=== PATIENT | male | born 1975 | race Caucasian/White ===

== ENCOUNTER 2017-11-06 16:49 | Emergency (ER) | payer SELFPAY | END 2017-11-06 17:30 | disposition home or self-care (01) | LOC: ER 16:49 | DX: M54.12 Radiculopathy, cervical region (principal); R21 Rash and other nonspecific skin eruption | CPT/HCPCS: 99283 ==

== ENCOUNTER 2019-08-15 14:52 | Inpatient (IN) | payer SELFPAY ==
[~2019-08-15] VITALS: Ht 177.8 cm; Wt 95.3 kg
[~2019-08-15 14:52] MED LIST: AMLO5TAB10 PO; BUPR100T7 PO; CLON0.1T12 PO; LORA1TAB PO; NALT50TA PO; PRED20TA PO
--- NOTE | 2019-08-15 15:33 | PHYS DOC ---
Past Medical History Past Medical History: No Pertinent History Past Surgical History: Other Additional Past Surgical Histo: RIGHT HAND Alcohol Use: Heavy Drug Use: None Adult General Chief Complaint Chief Complaint: ABDOMINAL PAIN HPI HPI Patient is a 43 year old male with history of alcoholism who presents to the ED today complaining of 5 out of 10 epigastric abdominal pain that began a couple days ago, patient will not define how many days he has had this pain, he states he has been on a drinking binge for the last 1 month. He states today he had a pack of beer as well as a couple hard liquors, he will not elaborate on what he drank. Patient describes the pain as burning sensation. Denies any nausea vomiting. Denies any exacerbating or alleviating factors. He states he might need help with alcoholism. Review of Systems Review of Systems Constitutional: Denies fever or chills [] Eyes: Denies change in visual acuity, redness, or eye pain [] HENT: Denies nasal congestion or sore throat [] Respiratory: Denies cough or shortness of breath [] Cardiovascular: No additional information not addressed in HPI [] GI: Reports epigastric abdominal pain. Denies abdominal pain, bloody stools or diarrhea [] : Denies dysuria or hematuria [] Musculoskeletal: Denies back pain or joint pain [] Integument: Denies rash or skin lesions [] Neurologic: Denies headache, focal weakness or sensory changes [] All other systems were reviewed and found to be within normal limits, except as documented in this note. Current Medications Current Medications Current Medications Medications (Trade) Dose Ordered Sig/[facility] Start Time Stop Time Status Last Admin Dose Admin Acetaminophen/ Codeine Phosphate (Tylenol #3) 1 tab PRN Q6HRS PRN 08/15/19 17:30 Amlodipine Besylate (Norvasc) 5 mg DAILY 08/16/19 09:00 Bupropion HCl (Wellbutrin Sr) 100 mg BID 08/15/19 21:00 Chlordiazepoxide (Librium) 25 mg PRN Q6HRS PRN 08/15/19 17:30 Clonidine HCl (Catapres) 0.1 mg PRN Q1HR PRN 08/15/19 17:30 Fentanyl Citrate (Fentanyl 2ml Vial) 50 mcg 1X ONCE 08/15/19 17:30 08/15/19 17:33 DC 08/15/19 18:20 50 MCG Folic Acid (Folic Acid) 1 mg DAILY 08/16/19 09:00 Info (CONTRAST GIVEN -- Rx MONITORING) 1 each PRN DAILY PRN 08/15/19 17:00 08/17/19 16:59 Iohexol (Omnipaque 300 Mg/ml) 75 ml 1X ONCE 08/15/19 17:00 08/15/19 17:01 DC 08/15/19 16:49 75 ML Lorazepam (Ativan Inj) 2 mg PRN Q4HRS PRN 08/15/19 17:30 Lorazepam (Ativan) 1 mg PRN TID PRN 08/15/19 17:30 Morphine Sulfate (Morphine Sulfate) 4 mg PRN Q2HR PRN 08/15/19 17:15 08/16/19 17:14 Multi-Ingredient Mouthwash/Gargle (Gi Cocktail) 20 ml 1X ONCE 08/15/19 16:00 08/15/19 16:01 DC 08/15/19 15:32 20 ML Multivitamins (Thera M Plus) 1 tab DAILY 08/16/19 09:00 Multivitamins 10 ml/Thiamine HCl 100 mg/Folic Acid 1 mg/Sodium Chloride 1,011.2 ml @ 1,000.088 mls/hr 1X ONCE 08/15/19 16:00 08/15/19 17:00 DC 08/15/19 15:49 1,000.088 MLS/HR Naltrexone HCl (ReVia) 50 mg DAILY 08/16/19 09:00 Nicotine (Nicoderm Cq 21mg) 1 patch PRN DAILY PRN 08/15/19 17:30 Ondansetron HCl (Zofran) 4 mg PRN Q6HRS PRN 08/15/19 17:30 Pantoprazole Sodium (PROTONIX VIAL for IV PUSH) 40 mg 1X ONCE 08/15/19 17:45 08/15/19 17:46 DC 08/15/19 18:20 40 MG Sodium Chloride 1,000 ml @ 125 mls/hr Q8H 08/15/19 18:00 08/15/19 18:21 125 MLS/HR Thiamine Mononitrate (Vitamin B-1) 100 mg DAILY 08/16/19 09:00 Zolpidem Tartrate (Ambien) 5 mg PRN QHS PRN 08/15/19 17:30 Allergies Allergies Allergies Coded Allergies Type Severity Reaction Last Updated Verified No Known Drug Allergies 11/06/17 No Physical Exam Physical Exam Constitutional: Well developed, well nourished, no acute distress, non-toxic appearance. [] HENT: Normocephalic, atraumatic, bilateral external ears normal, oropharynx moist, no oral exudates, nose normal. [] Eyes: PERRLA, EOMI, conjunctiva normal, no discharge. [] Neck: Normal range of motion, no tenderness, supple, no stridor. [] Cardiovascular:Heart rate regular rhythm, no murmur [] Lungs & Thorax: Bilateral breath sounds clear to auscultation [] Abdomen: Bowel sounds normal, soft, no tenderness, no masses, no pulsatile masses. [] Skin: Warm, dry, no erythema, no rash. [] Back: No tenderness, no CVA tenderness. [] Extremities: No tenderness, no cyanosis, no clubbing, ROM intact, no edema. [] Neurologic: Alert and oriented X 3, normal motor function, normal sensory function, no focal deficits noted. [] Psychologic: Flat affect, depressed mood Current Patient Data Vital Signs Vital Signs Date Time Temp Pulse Resp B/P (MAP) Pulse Ox O2 Delivery O2 Flow Rate FiO2 08/15/19 18:20 24 100 Room Air 08/15/19 15:10 98.6 72 165/98 (120) 98.6 Lab Values Laboratory Tests Test 08/15/19 13:17 08/15/19 15:28 Urine Color Yellow Urine Clarity Clear Urine pH 7.0 Urine Specific [place] 1.015 Urine Protein Negative mg/dL (NEG-TRACE) Urine Glucose (UA) Negative mg/dL (NEG) Urine Ketones (Stick) Negative mg/dL (NEG) Urine Blood Negative (NEG) Urine Nitrite Negative (NEG) Urine Bilirubin Negative (NEG) Urine Urobilinogen Dipstick 1.0 mg/dL (0.2 mg/dL) Urine Leukocyte Esterase Negative (NEG) Urine RBC 0 /HPF (0-2) Urine WBC Occ /HPF (0-4) Urine Squamous Epithelial Cells Occ /LPF Urine Bacteria 0 /HPF (0-FEW) Urine Mucus Mod /LPF Urine Opiates Screen Neg (NEG) Urine Methadone Screen Neg (NEG) Urine Barbiturates Neg (NEG) Urine Phencyclidine Screen Neg (NEG) Urine Amphetamine/Methamphetamine Neg (NEG) Urine Benzodiazepines Screen Neg (NEG) Urine Cocaine Screen Neg (NEG) Urine Cannabinoids Screen Neg (NEG) Urine Ethyl Alcohol Pos (NEG) White Blood Count 8.9 x10^3/uL (4.0-11.0) Red Blood Count 4.48 x10^6/uL (4.30-5.70) Hemoglobin 15.4 g/dL (13.0-17.5) Hematocrit 43.3 % (39.0-53.0) Mean Corpuscular Volume 97 fL (79-100) Mean Corpuscular Hemoglobin 34 pg (25-35) Mean Corpuscular Hemoglobin Concent 36 g/dL (31-37) Red Cell Distribution Width 12.9 % (11.5-14.5) Platelet Count 131 x10^3/uL (140-400) L Neutrophils (%) (Auto) 75 % (31-73) H Lymphocytes (%) (Auto) 18 % (24-48) L Monocytes (%) (Auto) 6 % (0-9) Eosinophils (%) (Auto) 0 % (0-3) Basophils (%) (Auto) 1 % (0-3) Neutrophils # (Auto) 6.7 x10^3/uL (1.8-7.7) Lymphocytes # (Auto) 1.6 x10^3/uL (1.0-4.8) Monocytes # (Auto) 0.5 x10^3/uL (0.0-1.1) Eosinophils # (Auto) 0.0 x10^3/uL (0.0-0.7) Basophils # (Auto) 0.1 x10^3/uL (0.0-0.2) Sodium Level 136 mmol/L (136-145) Potassium Level 4.2 mmol/L (3.5-5.1) Chloride Level 101 mmol/L (98-107) Carbon Dioxide Level 19 mmol/L (21-32) L Anion Gap 16 (6-14) H Blood Urea Nitrogen 14 mg/dL (8-26) Creatinine 0.9 mg/dL (0.7-1.3) Estimated GFR (Cockcroft-Gault) 93.0 BUN/Creatinine Ratio 16 (6-20) Glucose Level 174 mg/dL (70-99) H Calcium Level 8.0 mg/dL (8.5-10.1) L Magnesium Level 1.6 mg/dL (1.8-2.4) L Total Bilirubin 0.6 mg/dL (0.2-1.0) Aspartate Amino Transferase (AST) 220 U/L (15-37) H Alanine Aminotransferase (ALT) 54 U/L (16-63) Alkaline Phosphatase 76 U/L (46-116) Total Protein 7.2 g/dL (6.4-8.2) Albumin 3.2 g/dL (3.4-5.0) L Albumin/Globulin Ratio 0.8 (1.0-1.7) L Lipase 577 U/L (73-393) H Ethyl Alcohol Level 103 mg/dL (0-10) H Laboratory Tests 08/15/19 15:28 Laboratory Tests 08/15/19 15:28 EKG EKG [address] Rodriges sinus rhythm HR 75 no STEMI[] Radiology/Procedures Radiology/Procedures []PROCEDURE: CT ABD PELV W/ IV CONTRST ONLY Exam: CT abdomen and pelvis with contrast INDICATION: Abdominal pain, alcoholic TECHNIQUE: Sequential axial images through the abdomen and pelvis obtained following the administration of 75 mL of Omni 300 IV contrast. Sagittal and coronal reformatted images were reconstructed from the axial data and reviewed. Comparisons: CT 05/31/2019 FINDINGS: Heart size is normal. No pericardial effusion. Visualized lung bases are clear. No pleural effusion. Mild hepatic steatosis. Otherwise, liver, spleen, and adrenals are unremarkable. Gallstone noted within the gallbladder which is otherwise unremarkable. Mild inflammatory changes surrounding the pancreatic head and duodenum. No peripancreatic fluid collection or ductal dilatation. Kidneys a straight symmetric enhancement. No perinephric inflammation or hydronephrosis. No renal or ureteral calculi are identified. Bladder is distended and appears thin-walled. Prostate is not enlarged. Large and small bowel are unremarkable. No obstruction. No free intra-abdominal air or fluid. Abdominal aorta has a normal course and caliber. Abdominal vasculature is patent. No enlarged abdominal lymph nodes are identified. No suspicious osseous lesions or acute fractures. IMPRESSION: 1. Inflammatory changes surrounding the pancreatic head, favored represent pancreatitis. No fluid collection or evidence of necrosis. 2. Inflammatory changes also involve the duodenum, likely secondary to proximity. However, superimposed enteritis is also possible. 3. Hepatic steatosis. Exposure: One or more of the following in the visualized dose reduction techniques were utilized for this examination: 1. Automated exposure control 2. Adjustment of the MA and/or KV according to patient size 3. Use of iterative of reconstructive technique Electronically signed by: Bandar Rocha MD (08/15/2019 5:01 PM) [facility] DICTATED and SIGNED BY: BANDAR ROCHA MD DATE: 08/15/19 3622 Course & Med Decision Making Course & Med Decision Making Pertinent Labs and Imaging studies reviewed. (See chart for details) This is a 43-year-old male patient with history of alcoholism presenting today complaining of epigastric abdominal pain for couple days. Patient drank prior to coming to the ED see HPI. Patient was started on a banana bag on arrival to the ED. CBC with a normal WBC, CMP with AST of 220, magnesium 1.6, glucose 174, anion gap 16, lipase 577. CT of the abdomen and pelvic was noted for acute pancreatitis. Alcohol level 103. Routine consult placed for GI. IV fluids continued as well as nothing by mouth 1716 Spoke with who accepted patient for admission PAT team consult placed-spoke with [facility] PAT team they will f/u with patient in AM Dragon Disclaimer Dragon Disclaimer This electronic medical record was generated, in whole or in part, using a voice recognition dictation system. Departure Departure Impression: Primary Impression: Acute pancreatitis Additional Impression: Alcoholism Disposition: ADMITTED INPATIENT Condition: STABLE Referrals: NO PCP (PCP) Problem Qualifiers Primary Impression: Acute pancreatitis Pancreatitis type: unspecified pancreatitis type Acute pancreatitis complication: unspecified Qualified Codes: K85.90 - Acute pancreatitis without necrosis or infection, unspecified ABIMAEL CONTRERAS PHARMACY STUDENT Aug 15, 2019 15:33
[2019-08-15 15:36] LABS: BASO # 0.1 x10^3/uL (0.0-0.2); BASO % 1 % (0-3); EOS % 0 % (0-3); HEMATOCRIT 43.3 % (39.0-53.0); HEMOGLOBIN 15.4 g/dL (13.0-17.5); LYMPH # 1.6 x10^3/uL (1.0-4.8); LYMPH % 18 % (24-48); MEAN CORPUSCULAR HEMOGLOBIN 34 pg (25-35); MEAN CORPUSCULAR HGB CONC 36 g/dL (31-37); MEAN CORPUSCULAR VOLUME 97 fL (79-100); MONO # 0.5 x10^3/uL (0.0-1.1); MONO % 6 % (0-9); NEUT # 6.7 x10^3/uL (1.8-7.7); NEUT % 75 % (31-73); PLATELET COUNT 131 x10^3/uL (140-400); RED BLOOD COUNT 4.48 x10^6/uL (4.30-5.70); RED CELL DISTRIBUTION WIDTH 12.9 % (11.5-14.5); WHITE BLOOD COUNT 8.9 x10^3/uL (4.0-11.0)
[2019-08-15 15:43] LABS: CREATININE 0.9 mg/dL (0.7-1.3); POTASSIUM 4.2 mmol/L (3.5-5.1)
[2019-08-15 15:50] LABS: ALBUMIN 3.2 g/dL (3.4-5.0); ALBUMIN/GLOBULIN RATIO 0.8 (1.0-1.7); MAGNESIUM 1.6 mg/dL (1.8-2.4); TOTAL BILIRUBIN 0.6 mg/dL (0.2-1.0); TOTAL PROTEIN 7.2 g/dL (6.4-8.2)
--- NOTE | 2019-08-15 15:56 | EKG ---
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
[2019-08-15] MEDS ORDERED: LIDO:MAALOX 1:1 20 ML SINGLE DOSE. SWSW ONE (16:00)
[2019-08-15] MEDS ORDERED: ONDANSETRON PF 4 MG/2 ML VIAL. IV ONE (16:00)
[2019-08-15] MEDS ORDERED: MULTIVIT INFUSN,ADULT 4,VIT K 10 ML, THIAMINE INJ 100 MG, FOLIC ACID INJ 1 MG in IV NOR... IV ONE (16:00)
[2019-08-15 16:32] LABS: BILIRUBIN,URINE NEGATIVE (NEG); CLARITY,URINE CLEAR; COLOR,URINE YELLOW; NITRITE,URINE NEGATIVE (NEG); PROTEIN,URINE NEGATIVE (NEG-TRACE)
[2019-08-15 16:46] LABS: BACTERIA,URINE 0 /HPF (0-FEW); RBC,URINE 0 /HPF (0-2); SQUAMOUS EPITHELIAL CELL,UR OCC /LPF; WBC,URINE OCC /HPF (0-4)
[2019-08-15 16:48] LABS: BARBITURATES NEG (NEG); BENZODIAZEPINES NEG (NEG); CANNABINOIDS NEG (NEG); COCAINE NEG (NEG); METHADONE NEG (NEG); OPIATES NEG (NEG); PHENCYCLIDINE NEG (NEG)
[2019-08-15 16:53] LABS: AMPHETAMINE/METHAMPHETAMINE NEG (NEG)
[2019-08-15] MEDS ORDERED: IOHEXOL 300 MG/ML 100ML VIAL. IV ONE (17:00)
[2019-08-15] MEDS ORDERED: CONTRAST GIVEN. MC PRN (17:00)
--- NOTE | 2019-08-15 17:04 | RAD ---
Exam: CT abdomen and pelvis with contrast INDICATION: Abdominal pain, alcoholic TECHNIQUE: Sequential axial images through the abdomen and pelvis obtained following the administration of 75 mL of Omni 300 IV contrast. Sagittal and coronal reformatted images were reconstructed from the axial data and reviewed. Comparisons: CT 05/31/2019 FINDINGS: Heart size is normal. No pericardial effusion. Visualized lung bases are clear. No pleural effusion. Mild hepatic steatosis. Otherwise, liver, spleen, and adrenals are unremarkable. Gallstone noted within the gallbladder which is otherwise unremarkable. Mild inflammatory changes surrounding the pancreatic head and duodenum. No peripancreatic fluid collection or ductal dilatation. Kidneys a straight symmetric enhancement. No perinephric inflammation or hydronephrosis. No renal or ureteral calculi are identified. Bladder is distended and appears thin-walled. Prostate is not enlarged. Large and small bowel are unremarkable. No obstruction. No free intra-abdominal air or fluid. Abdominal aorta has a normal course and caliber. Abdominal vasculature is patent. No enlarged abdominal lymph nodes are identified. No suspicious osseous lesions or acute fractures. IMPRESSION: 1. Inflammatory changes surrounding the pancreatic head, favored represent pancreatitis. No fluid collection or evidence of necrosis. 2. Inflammatory changes also involve the duodenum, likely secondary to proximity. However, superimposed enteritis is also possible. 3. Hepatic steatosis. Exposure: One or more of the following in the visualized dose reduction techniques were utilized for this examination: 1. Automated exposure control 2. Adjustment of the MA and/or KV according to patient size 3. Use of iterative of reconstructive technique Electronically signed by: Luis Benítez MD (08/15/2019 5:01 PM) [facility]
[2019-08-15] MEDS ORDERED: ONDANSETRON PF 4 MG/2 ML VIAL. IV PRN ×2 (17:15→17:30)
[2019-08-15] MEDS ORDERED: IV NORMAL SALINE 1000ML BAG 1,000 ML IV ONE (17:15)
[2019-08-15] MEDS ORDERED: NICOTINE 21MG PATCH. TD PRN (17:30)
[2019-08-15] MEDS ORDERED: LORazepam 1 MG TABLET PO PRN (17:30)
[2019-08-15] MEDS ORDERED: chlordiazePOXIDE HCL 25 MG CAPSULE PO PRN (17:30)
[2019-08-15] MEDS ORDERED: fentaNYL PF VIAL 100 MCG/2 ML VIAL IVP ONE (17:30)
--- NOTE | 2019-08-15 17:32 | PDOC1 ---
History and Physical Date of Admission Date of Admission DATE: 08/15/19 TIME: 17:25 Identification/Chief Complaint Chief Complaint alcohol issues, shaking Source Source: Caregiver, Chart review, Patient History of Present Illness History of Present Illness he has been binge drinking whiskey and beer, known to [facility] and has naltrexone as one of the home meds, delroy today, epig pain radiating to back with nausea , lipase 577 with evidence of inflammatory stranding around the pancreas on CT,Admitted for alcoholic pancreatitis, Lipase 577, no prev episodes pancreatitis known to him. Admitted,. I see at ER< very shaky, concerned about pain and withdrawals Past Medical History Cardiovascular: HTN Psych: Addictions, Depression Past Surgical History Past Surgical History: No pertinent history Family History Family History: Hypertension Social History Smoke: No ALCOHOL: heavy Drugs: None Current Problem List Problem List Problems Medical Problems: (1) Acute pancreatitis Status: Acute (2) Alcoholism Status: Acute Current Medications Current Medications Current Medications Multivitamins 10 ml/Thiamine HCl 100 mg/Folic Acid 1 mg/Sodium Chloride 1,011.2 ml @ 1,000.088 mls/hr 1X ONCE IV Last administered on 08/15/19at 15:49; Start 08/15/19 at 16:00; Stop 08/15/19 at 17:00; Status DC Multi-Ingredient Mouthwash/Gargle (Gi Cocktail) 20 ml 1X ONCE SWSW Last administered on 08/15/19at 15:32; Start 08/15/19 at 16:00; Stop 08/15/19 at 16:01; Status DC Ondansetron HCl (Zofran) 4 mg 1X ONCE IV Last administered on 08/15/19at 15:32; Start 08/15/19 at 16:00; Stop 08/15/19 at 16:01; Status DC Iohexol (Omnipaque 300 Mg/ml) 75 ml 1X ONCE IV Last administered on 08/15/19at 16:49; Start 08/15/19 at 17:00; Stop 08/15/19 at 17:01; Status DC Info (CONTRAST GIVEN -- Rx MONITORING) 1 each PRN DAILY PRN MC SEE COMMENTS; Start 08/15/19 at 17:00; Stop 08/17/19 at 16:59 Ondansetron HCl (Zofran) 4 mg PRN Q8HRS PRN IV NAUSEA/VOMITING; Start 08/15/19 at 17:15; Stop 08/15/19 at 17:19; Status DC Morphine Sulfate (Morphine Sulfate) 4 mg PRN Q2HR PRN IV PAIN; Start 08/15/19 at 17:15; Stop 08/16/19 at 17:14 Sodium Chloride 1,000 ml @ 125 mls/hr 1X ONCE IV ; Start 08/15/19 at 17:15; Stop 08/16/19 at 01:14 Ondansetron HCl (Zofran) 4 mg PRN Q6HRS PRN IV NAUSEA/VOMITING; Start 08/15/19 at 17:30 Acetaminophen/ Codeine Phosphate (Tylenol #3) 1 tab PRN Q6HRS PRN PO PAIN; Start 08/15/19 at 17:30 Chlordiazepoxide (Librium) 25 mg PRN Q6HRS PRN PO ANXIETY / AGITATION; Start 08/15/19 at 17:30 Zolpidem Tartrate (Ambien) 5 mg PRN QHS PRN PO INSOMNIA; Start 08/15/19 at 17:30 Nicotine (Nicoderm Cq 21mg) 1 patch PRN DAILY PRN TD SMOKING CESSATION; Start 08/15/19 at 17:30 Multivitamins (Thera M Plus) 1 tab DAILY PO ; Start 08/16/19 at 09:00 Thiamine Mononitrate (Vitamin B-1) 100 mg DAILY PO ; Start 08/16/19 at 09:00 Folic Acid (Folic Acid) 1 mg DAILY PO ; Start 08/16/19 at 09:00 Amlodipine Besylate (Norvasc) 5 mg DAILY PO ; Start 08/16/19 at 09:00 Bupropion HCl (Wellbutrin Sr) 100 mg BID PO ; Start 08/15/19 at 21:00 Clonidine HCl (Catapres) 0.1 mg PRN Q1HR PRN PO HTN; Start 08/15/19 at 17:30 Lorazepam (Ativan) 1 mg PRN TID PRN PO ALCOHOL WITHDRAWAL; Start 08/15/19 at 17:30 Naltrexone HCl (ReVia) 50 mg DAILY PO ; Start 08/16/19 at 09:00 Active Scripts Active Wellbutrin Sr (Bupropion Hcl) 100 Mg Tablet.er 1 Tab PO BID 30 Days Naltrexone Hcl 50 Mg Tablet 1 Tab PO DAILY Take 30 minutes to 1 hour before dinner Lorazepam 1 Mg Tablet 1 Tab PO PRN TID PRN 2 Days Amlodipine Besylate 5 Mg Tablet 5 Mg PO DAILY 30 Days Catapres (Clonidine Hcl) 0.1 Mg Tablet 0.1 Mg PO PRN Q1HR PRN 14 Days Allergies Allergies: Coded Allergies: No Known Drug Allergies (Unverified , 11/06/17) ROS Review of System nausea, shaky, abd pain as per HPI, the rest 14 pt neg Physical Exam General: No acute distress, Other (shaky, curled up, in epig pain) HEENT: PERRLA Lungs: Clear to auscultation, Normal air movement Heart: S1S2, RRR, no thrills, no rubs, no gallops, no murmurs, other (sinus tachy) Cardiovascular: S1, S2 Abdomen: Normal bowel sounds, Soft, Other (tenderness epig area, no guarding) Extremities: No clubbing, No cyanosis, No edema, Normal pulses, No tenderness/swelling Skin: No rashes, No breakdown, No significant lesion Neuro: Normal gait, Normal speech, Strength at 5/5 X4 ext, Normal tone, Sensation intact, Cranial nerves 3-12 NL, Reflexes 2+ Psych/Mental Status: Mental status NL, Mood NL Vitals Vitals Vital Signs Date Time Temp Pulse Resp B/P (MAP) Pulse Ox O2 Delivery O2 Flow Rate FiO2 08/15/19 15:10 98.6 72 22 165/98 (120) 100 Room Air 98.6 Labs Labs Laboratory Tests Test 08/15/19 13:17 08/15/19 15:28 Urine Color Yellow Urine Clarity Clear Urine pH 7.0 Urine Specific [place] 1.015 Urine Protein Negative mg/dL (NEG-TRACE) Urine Glucose (UA) Negative mg/dL (NEG) Urine Ketones (Stick) Negative mg/dL (NEG) Urine Blood Negative (NEG) Urine Nitrite Negative (NEG) Urine Bilirubin Negative (NEG) Urine Urobilinogen Dipstick 1.0 mg/dL (0.2 mg/dL) Urine Leukocyte Esterase Negative (NEG) Urine RBC 0 /HPF (0-2) Urine WBC Occ /HPF (0-4) Urine Squamous Epithelial Cells Occ /LPF Urine Bacteria 0 /HPF (0-FEW) Urine Mucus Mod /LPF Urine Opiates Screen Neg (NEG) Urine Methadone Screen Neg (NEG) Urine Barbiturates Neg (NEG) Urine Phencyclidine Screen Neg (NEG) Urine Amphetamine/Methamphetamine Neg (NEG) Urine Benzodiazepines Screen Neg (NEG) Urine Cocaine Screen Neg (NEG) Urine Cannabinoids Screen Neg (NEG) Urine Ethyl Alcohol Pos (NEG) White Blood Count 8.9 x10^3/uL (4.0-11.0) Red Blood Count 4.48 x10^6/uL (4.30-5.70) Hemoglobin 15.4 g/dL (13.0-17.5) Hematocrit 43.3 % (39.0-53.0) Mean Corpuscular Volume 97 fL (79-100) Mean Corpuscular Hemoglobin 34 pg (25-35) Mean Corpuscular Hemoglobin Concent 36 g/dL (31-37) Red Cell Distribution Width 12.9 % (11.5-14.5) Platelet Count 131 x10^3/uL (140-400) Neutrophils (%) (Auto) 75 % (31-73) Lymphocytes (%) (Auto) 18 % (24-48) Monocytes (%) (Auto) 6 % (0-9) Eosinophils (%) (Auto) 0 % (0-3) Basophils (%) (Auto) 1 % (0-3) Neutrophils # (Auto) 6.7 x10^3/uL (1.8-7.7) Lymphocytes # (Auto) 1.6 x10^3/uL (1.0-4.8) Monocytes # (Auto) 0.5 x10^3/uL (0.0-1.1) Eosinophils # (Auto) 0.0 x10^3/uL (0.0-0.7) Basophils # (Auto) 0.1 x10^3/uL (0.0-0.2) Sodium Level 136 mmol/L (136-145) Potassium Level 4.2 mmol/L (3.5-5.1) Chloride Level 101 mmol/L (98-107) Carbon Dioxide Level 19 mmol/L (21-32) Anion Gap 16 (6-14) Blood Urea Nitrogen 14 mg/dL (8-26) Creatinine 0.9 mg/dL (0.7-1.3) Estimated GFR (Cockcroft-Gault) 93.0 BUN/Creatinine Ratio 16 (6-20) Glucose Level 174 mg/dL (70-99) Calcium Level 8.0 mg/dL (8.5-10.1) Magnesium Level 1.6 mg/dL (1.8-2.4) Total Bilirubin 0.6 mg/dL (0.2-1.0) Aspartate Amino Transf (AST/SGOT) 220 U/L (15-37) Alanine Aminotransferase (ALT/SGPT) 54 U/L (16-63) Alkaline Phosphatase 76 U/L (46-116) Total Protein 7.2 g/dL (6.4-8.2) Albumin 3.2 g/dL (3.4-5.0) Albumin/Globulin Ratio 0.8 (1.0-1.7) Lipase 577 U/L (73-393) Ethyl Alcohol Level 103 mg/dL (0-10) Laboratory Tests Test 08/15/19 13:17 08/15/19 15:28 Urine Color Yellow Urine Clarity Clear Urine pH 7.0 Urine Specific [place] 1.015 Urine Protein Negative mg/dL (NEG-TRACE) Urine Glucose (UA) Negative mg/dL (NEG) Urine Ketones (Stick) Negative mg/dL (NEG) Urine Blood Negative (NEG) Urine Nitrite Negative (NEG) Urine Bilirubin Negative (NEG) Urine Urobilinogen Dipstick 1.0 mg/dL (0.2 mg/dL) Urine Leukocyte Esterase Negative (NEG) Urine RBC 0 /HPF (0-2) Urine WBC Occ /HPF (0-4) Urine Squamous Epithelial Cells Occ /LPF Urine Bacteria 0 /HPF (0-FEW) Urine Mucus Mod /LPF Urine Opiates Screen Neg (NEG) Urine Methadone Screen Neg (NEG) Urine Barbiturates Neg (NEG) Urine Phencyclidine Screen Neg (NEG) Urine Amphetamine/Methamphetamine Neg (NEG) Urine Benzodiazepines Screen Neg (NEG) Urine Cocaine Screen Neg (NEG) Urine Cannabinoids Screen Neg (NEG) Urine Ethyl Alcohol Pos (NEG) White Blood Count 8.9 x10^3/uL (4.0-11.0) Red Blood Count 4.48 x10^6/uL (4.30-5.70) Hemoglobin 15.4 g/dL (13.0-17.5) Hematocrit 43.3 % (39.0-53.0) Mean Corpuscular Volume 97 fL (79-100) Mean Corpuscular Hemoglobin 34 pg (25-35) Mean Corpuscular Hemoglobin Concent 36 g/dL (31-37) Red Cell Distribution Width 12.9 % (11.5-14.5) Platelet Count 131 x10^3/uL (140-400) Neutrophils (%) (Auto) 75 % (31-73) Lymphocytes (%) (Auto) 18 % (24-48) Monocytes (%) (Auto) 6 % (0-9) Eosinophils (%) (Auto) 0 % (0-3) Basophils (%) (Auto) 1 % (0-3) Neutrophils # (Auto) 6.7 x10^3/uL (1.8-7.7) Lymphocytes # (Auto) 1.6 x10^3/uL (1.0-4.8) Monocytes # (Auto) 0.5 x10^3/uL (0.0-1.1) Eosinophils # (Auto) 0.0 x10^3/uL (0.0-0.7) Basophils # (Auto) 0.1 x10^3/uL (0.0-0.2) Sodium Level 136 mmol/L (136-145) Potassium Level 4.2 mmol/L (3.5-5.1) Chloride Level 101 mmol/L (98-107) Carbon Dioxide Level 19 mmol/L (21-32) Anion Gap 16 (6-14) Blood Urea Nitrogen 14 mg/dL (8-26) Creatinine 0.9 mg/dL (0.7-1.3) Estimated GFR (Cockcroft-Gault) 93.0 BUN/Creatinine Ratio 16 (6-20) Glucose Level 174 mg/dL (70-99) Calcium Level 8.0 mg/dL (8.5-10.1) Magnesium Level 1.6 mg/dL (1.8-2.4) Total Bilirubin 0.6 mg/dL (0.2-1.0) Aspartate Amino Transf (AST/SGOT) 220 U/L (15-37) Alanine Aminotransferase (ALT/SGPT) 54 U/L (16-63) Alkaline Phosphatase 76 U/L (46-116) Total Protein 7.2 g/dL (6.4-8.2) Albumin 3.2 g/dL (3.4-5.0) Albumin/Globulin Ratio 0.8 (1.0-1.7) Lipase 577 U/L (73-393) Ethyl Alcohol Level 103 mg/dL (0-10) VTE Prophylaxis Ordered VTE Prophylaxis Devices: Yes VTE Pharmacological Prophylaxi: Yes Assessment/Plan Assessment/Plan 1. Alcoholic pancreatitis 2. SIRS, non infectious 3. Sinus tachy 4. Transaminitis 5, HEpatic steatosis 6. Obesity BMI 30.1 7, Depression NOS, addictions/al;cohol dependence 8. Mild PCM - albumin 3,2 9. Accelerated HTn - BP high side, i have resumed home norvasc and other meds, clonidine prn 10.Alcoholism - CIWA< babana bag etc FULL CODE Seen at ER Med monitored bed preferably, Lipase check tmr IVF GI consulted PPI IV Liq diet tmr if lipase and he is better PAin control Other supprotve meds PAT NOWAK MD Aug 15, 2019 17:32
[2019-08-15] MEDS ORDERED: PANTOPRAZOLE IV PUSH 40 MG VIAL. IVP ONE (17:45)
[2019-08-15] MEDS: IV NORMAL SALINE 1000ML BAG 1,000 ML IV SCH ×2 (18:21→23:51)
[2019-08-15] MEDS: MORPHINE SULFATE 4 MG/ML VIAL. IV PRN ×2 (21:24→23:59)
[2019-08-15] MEDS: buPROPion SR 100 MG TABLET.SA. PO SCH (21:46)
[2019-08-15 23:00] VITALS: BP 176/105
[2019-08-16] MEDS: MORPHINE SULFATE 4 MG/ML VIAL. IV PRN ×4 (02:08→13:50)
[2019-08-16] MEDS ORDERED: INFLUENZA VAX SCREEN BY RX. MC PRN (02:15)
[2019-08-16 03:00] VITALS: BP 155/98
[2019-08-16] MEDS: IV NORMAL SALINE 1000ML BAG 1,000 ML IV SCH ×3 (05:55→21:48)
[2019-08-16 07:00] VITALS: BP 149/98
[2019-08-16 07:16] LABS: BASO # 0.1 x10^3/uL (0.0-0.2); BASO % 0 % (0-3); EOS % 0 % (0-3); HEMATOCRIT 44.5 % (39.0-53.0); HEMOGLOBIN 15.1 g/dL (13.0-17.5); LYMPH # 1.7 x10^3/uL (1.0-4.8); LYMPH % 13 % (24-48); MEAN CORPUSCULAR HEMOGLOBIN 33 pg (25-35); MEAN CORPUSCULAR HGB CONC 34 g/dL (31-37); MEAN CORPUSCULAR VOLUME 98 fL (79-100); MONO # 0.8 x10^3/uL (0.0-1.1); MONO % 6 % (0-9); NEUT # 10.4 x10^3/uL (1.8-7.7); NEUT % 80 % (31-73); PLATELET COUNT 107 x10^3/uL (140-400); RED BLOOD COUNT 4.56 x10^6/uL (4.30-5.70); RED CELL DISTRIBUTION WIDTH 12.9 % (11.5-14.5)
[2019-08-16 07:24] LABS: ALBUMIN 3.3 g/dL (3.4-5.0); ALBUMIN/GLOBULIN RATIO 0.8 (1.0-1.7); CALCIUM 8.6 mg/dL (8.5-10.1); GFR 82.3; POTASSIUM 3.8 mmol/L (3.5-5.1); TOTAL BILIRUBIN 1.6 mg/dL (0.2-1.0); TOTAL PROTEIN 7.3 g/dL (6.4-8.2)
[2019-08-16] MEDS: FOLIC ACID 1 MG TABLET. PO SCH (07:44)
[2019-08-16] MEDS: MULTIVITAMIN with MINERAL TABLET. PO SCH (07:45)
[2019-08-16] MEDS: THIAMINE 100 MG TABLET. PO SCH (07:45)
[2019-08-16] MEDS: buPROPion SR 100 MG TABLET.SA. PO SCH ×2 (07:51→21:42)
[2019-08-16] MEDS: PANTOPRAZOLE IV PUSH 40 MG VIAL. IVP SCH (07:51)
[2019-08-16] MEDS: amLODIPine BESYLATE 5 MG TABLET PO SCH (07:52)
[2019-08-16] MEDS ORDERED: NALTREXONE HCL 50 MG TABLET. PO SCH (09:00)
[2019-08-16] MEDS ORDERED: FLU VAX QS 2019-20 (36MOS+)/PF 0.5 ML SYRINGE. VAX IM ONE (09:00)
--- NOTE | 2019-08-16 09:06 | PDOC ---
PROGRESS NOTES Chief Complaint Chief Complaint 1. Alcoholic pancreatitis 2. SIRS, non infectious 3. Sinus tachy 4. Transaminitis 5, HEpatic steatosis 6. Obesity BMI 30.1 7, Depression NOS, addictions/al;cohol dependence 8. Mild PCM - albumin 3,2 9. Accelerated HTn - BP high side, i have resumed home norvasc and other meds, clonidine prn 10.Alcoholism - CIWA< babana bag etc History of Present Illness History of Present Illness Asking for pain meds LEss shaky but claims wobbly still on feet Lipase down to 400s from 577on admit CT abd supports acute pancreatitis PLAn: Cont IVF while NPO GI has yet to see might be able to start full liq soon COnt CIWA Lipase again tmr - WBC 13 today (higher than on admit,clean UA< no clear URi sxs )- monitor the leukocytosis Vitals Vitals Vital Signs Date Time Temp Pulse Resp B/P (MAP) Pulse Ox O2 Delivery O2 Flow Rate FiO2 08/16/19 07:54 Room Air 08/16/19 07:52 101 149/98 08/16/19 07:00 98.8 18 96 98.8 Physical Exam General: Alert, Oriented X3, Cooperative, No acute distress, Other (shaky, curled up, in epig pain) Heart: Regular rate, Normal S1, Normal S2 Lungs: Clear Abdomen: Normal bowel sounds, Soft, Other (tenderness epig area, no guarding) Extremities: No clubbing, No cyanosis, No edema, Normal pulses, No ten derness/swelling Skin: No rashes, No breakdown, No significant lesion Labs LABS Laboratory Tests Test 08/15/19 13:17 08/15/19 15:28 08/16/19 05:55 Urine Color Yellow Urine Clarity Clear Urine pH 7.0 Urine Specific [place] 1.015 Urine Protein Negative mg/dL (NEG-TRACE) Urine Glucose (UA) Negative mg/dL (NEG) Urine Ketones (Stick) Negative mg/dL (NEG) Urine Blood Negative (NEG) Urine Nitrite Negative (NEG) Urine Bilirubin Negative (NEG) Urine Urobilinogen Dipstick 1.0 mg/dL (0.2 mg/dL) Urine Leukocyte Esterase Negative (NEG) Urine RBC 0 /HPF (0-2) Urine WBC Occ /HPF (0-4) Urine Squamous Epithelial Cells Occ /LPF Urine Bacteria 0 /HPF (0-FEW) Urine Mucus Mod /LPF Urine Opiates Screen Neg (NEG) Urine Methadone Screen Neg (NEG) Urine Barbiturates Neg (NEG) Urine Phencyclidine Screen Neg (NEG) Urine Amphetamine/Methamphetamine Neg (NEG) Urine Benzodiazepines Screen Neg (NEG) Urine Cocaine Screen Neg (NEG) Urine Cannabinoids Screen Neg (NEG) Urine Ethyl Alcohol Pos (NEG) White Blood Count 8.9 x10^3/uL (4.0-11.0) 13.0 x10^3/uL (4.0-11.0) Red Blood Count 4.48 x10^6/uL (4.30-5.70) 4.56 x10^6/uL (4.30-5.70) Hemoglobin 15.4 g/dL (13.0-17.5) 15.1 g/dL (13.0-17.5) Hematocrit 43.3 % (39.0-53.0) 44.5 % (39.0-53.0) Mean Corpuscular Volume 97 fL (79-100) 98 fL (79-100) Mean Corpuscular Hemoglobin 34 pg (25-35) 33 pg (25-35) Mean Corpuscular Hemoglobin Concent 36 g/dL (31-37) 34 g/dL (31-37) Red Cell Distribution Width 12.9 % (11.5-14.5) 12.9 % (11.5-14.5) Platelet Count 131 x10^3/uL (140-400) 107 x10^3/uL (140-400) Neutrophils (%) (Auto) 75 % (31-73) 80 % (31-73) Lymphocytes (%) (Auto) 18 % (24-48) 13 % (24-48) Monocytes (%) (Auto) 6 % (0-9) 6 % (0-9) Eosinophils (%) (Auto) 0 % (0-3) 0 % (0-3) Basophils (%) (Auto) 1 % (0-3) 0 % (0-3) Neutrophils # (Auto) 6.7 x10^3/uL (1.8-7.7) 10.4 x10^3/uL (1.8-7.7) Lymphocytes # (Auto) 1.6 x10^3/uL (1.0-4.8) 1.7 x10^3/uL (1.0-4.8) Monocytes # (Auto) 0.5 x10^3/uL (0.0-1.1) 0.8 x10^3/uL (0.0-1.1) Eosinophils # (Auto) 0.0 x10^3/uL (0.0-0.7) 0.0 x10^3/uL (0.0-0.7) Basophils # (Auto) 0.1 x10^3/uL (0.0-0.2) 0.1 x10^3/uL (0.0-0.2) Sodium Level 136 mmol/L (136-145) 139 mmol/L (136-145) Potassium Level 4.2 mmol/L (3.5-5.1) 3.8 mmol/L (3.5-5.1) Chloride Level 101 mmol/L (98-107) 103 mmol/L (98-107) Carbon Dioxide Level 19 mmol/L (21-32) 25 mmol/L (21-32) Anion Gap 16 (6-14) 11 (6-14) Blood Urea Nitrogen 14 mg/dL (8-26) 10 mg/dL (8-26) Creatinine 0.9 mg/dL (0.7-1.3) 1.0 mg/dL (0.7-1.3) Estimated GFR (Cockcroft-Gault) 93.0 82.3 BUN/Creatinine Ratio 16 (6-20) 10 (6-20) Glucose Level 174 mg/dL (70-99) 104 mg/dL (70-99) Calcium Level 8.0 mg/dL (8.5-10.1) 8.6 mg/dL (8.5-10.1) Magnesium Level 1.6 mg/dL (1.8-2.4) Total Bilirubin 0.6 mg/dL (0.2-1.0) 1.6 mg/dL (0.2-1.0) Aspartate Amino Transf (AST/SGOT) 220 U/L (15-37) 137 U/L (15-37) Alanine Aminotransferase (ALT/SGPT) 54 U/L (16-63) 70 U/L (16-63) Alkaline Phosphatase 76 U/L (46-116) 78 U/L (46-116) Total Protein 7.2 g/dL (6.4-8.2) 7.3 g/dL (6.4-8.2) Albumin 3.2 g/dL (3.4-5.0) 3.3 g/dL (3.4-5.0) Albumin/Globulin Ratio 0.8 (1.0-1.7) 0.8 (1.0-1.7) Lipase 577 U/L (73-393) 401 U/L (73-393) Ethyl Alcohol Level 103 mg/dL (0-10) Review of Systems Review of Systems abd discomfort , no emesis, no fevers, no soa, rest of 14 pt neg Assessment and Plan Assessmemt and Plan Problems Medical Problems: (1) Acute pancreatitis Status: Acute (2) Alcoholism Status: Acute Comment Review of Relevant I have reviewed the following items gavi (where applicable) has been applied. Labs Laboratory Tests Test 08/15/19 13:17 08/15/19 15:28 08/16/19 05:55 Urine Color Yellow Urine Clarity Clear Urine pH 7.0 Urine Specific [place] 1.015 Urine Protein Negative mg/dL (NEG-TRACE) Urine Glucose (UA) Negative mg/dL (NEG) Urine Ketones (Stick) Negative mg/dL (NEG) Urine Blood Negative (NEG) Urine Nitrite Negative (NEG) Urine Bilirubin Negative (NEG) Urine Urobilinogen Dipstick 1.0 mg/dL (0.2 mg/dL) Urine Leukocyte Esterase Negative (NEG) Urine RBC 0 /HPF (0-2) Urine WBC Occ /HPF (0-4) Urine Squamous Epithelial Cells Occ /LPF Urine Bacteria 0 /HPF (0-FEW) Urine Mucus Mod /LPF Urine Opiates Screen Neg (NEG) Urine Methadone Screen Neg (NEG) Urine Barbiturates Neg (NEG) Urine Phencyclidine Screen Neg (NEG) Urine Amphetamine/Methamphetamine Neg (NEG) Urine Benzodiazepines Screen Neg (NEG) Urine Cocaine Screen Neg (NEG) Urine Cannabinoids Screen Neg (NEG) Urine Ethyl Alcohol Pos (NEG) White Blood Count 8.9 x10^3/uL (4.0-11.0) 13.0 x10^3/uL (4.0-11.0) Red Blood Count 4.48 x10^6/uL (4.30-5.70) 4.56 x10^6/uL (4.30-5.70) Hemoglobin 15.4 g/dL (13.0-17.5) 15.1 g/dL (13.0-17.5) Hematocrit 43.3 % (39.0-53.0) 44.5 % (39.0-53.0) Mean Corpuscular Volume 97 fL (79-100) 98 fL (79-100) Mean Corpuscular Hemoglobin 34 pg (25-35) 33 pg (25-35) Mean Corpuscular Hemoglobin Concent 36 g/dL (31-37) 34 g/dL (31-37) Red Cell Distribution Width 12.9 % (11.5-14.5) 12.9 % (11.5-14.5) Platelet Count 131 x10^3/uL (140-400) 107 x10^3/uL (140-400) Neutrophils (%) (Auto) 75 % (31-73) 80 % (31-73) Lymphocytes (%) (Auto) 18 % (24-48) 13 % (24-48) Monocytes (%) (Auto) 6 % (0-9) 6 % (0-9) Eosinophils (%) (Auto) 0 % (0-3) 0 % (0-3) Basophils (%) (Auto) 1 % (0-3) 0 % (0-3) Neutrophils # (Auto) 6.7 x10^3/uL (1.8-7.7) 10.4 x10^3/uL (1.8-7.7) Lymphocytes # (Auto) 1.6 x10^3/uL (1.0-4.8) 1.7 x10^3/uL (1.0-4.8) Monocytes # (Auto) 0.5 x10^3/uL (0.0-1.1) 0.8 x10^3/uL (0.0-1.1) Eosinophils # (Auto) 0.0 x10^3/uL (0.0-0.7) 0.0 x10^3/uL (0.0-0.7) Basophils # (Auto) 0.1 x10^3/uL (0.0-0.2) 0.1 x10^3/uL (0.0-0.2) Sodium Level 136 mmol/L (136-145) 139 mmol/L (136-145) Potassium Level 4.2 mmol/L (3.5-5.1) 3.8 mmol/L (3.5-5.1) Chloride Level 101 mmol/L (98-107) 103 mmol/L (98-107) Carbon Dioxide Level 19 mmol/L (21-32) 25 mmol/L (21-32) Anion Gap 16 (6-14) 11 (6-14) Blood Urea Nitrogen 14 mg/dL (8-26) 10 mg/dL (8-26) Creatinine 0.9 mg/dL (0.7-1.3) 1.0 mg/dL (0.7-1.3) Estimated GFR (Cockcroft-Gault) 93.0 82.3 BUN/Creatinine Ratio 16 (6-20) 10 (6-20) Glucose Level 174 mg/dL (70-99) 104 mg/dL (70-99) Calcium Level 8.0 mg/dL (8.5-10.1) 8.6 mg/dL (8.5-10.1) Magnesium Level 1.6 mg/dL (1.8-2.4) Total Bilirubin 0.6 mg/dL (0.2-1.0) 1.6 mg/dL (0.2-1.0) Aspartate Amino Transf (AST/SGOT) 220 U/L (15-37) 137 U/L (15-37) Alanine Aminotransferase (ALT/SGPT) 54 U/L (16-63) 70 U/L (16-63) Alkaline Phosphatase 76 U/L (46-116) 78 U/L (46-116) Total Protein 7.2 g/dL (6.4-8.2) 7.3 g/dL (6.4-8.2) Albumin 3.2 g/dL (3.4-5.0) 3.3 g/dL (3.4-5.0) Albumin/Globulin Ratio 0.8 (1.0-1.7) 0.8 (1.0-1.7) Lipase 577 U/L (73-393) 401 U/L (73-393) Ethyl Alcohol Level 103 mg/dL (0-10) Laboratory Tests Test 08/15/19 13:17 08/15/19 15:28 08/16/19 05:55 Urine Color Yellow Urine Clarity Clear Urine pH 7.0 Urine Specific [place] 1.015 Urine Protein Negative mg/dL (NEG-TRACE) Urine Glucose (UA) Negative mg/dL (NEG) Urine Ketones (Stick) Negative mg/dL (NEG) Urine Blood Negative (NEG) Urine Nitrite Negative (NEG) Urine Bilirubin Negative (NEG) Urine Urobilinogen Dipstick 1.0 mg/dL (0.2 mg/dL) Urine Leukocyte Esterase Negative (NEG) Urine RBC 0 /HPF (0-2) Urine WBC Occ /HPF (0-4) Urine Squamous Epithelial Cells Occ /LPF Urine Bacteria 0 /HPF (0-FEW) Urine Mucus Mod /LPF Urine Opiates Screen Neg (NEG) Urine Methadone Screen Neg (NEG) Urine Barbiturates Neg (NEG) Urine Phencyclidine Screen Neg (NEG) Urine Amphetamine/Methamphetamine Neg (NEG) Urine Benzodiazepines Screen Neg (NEG) Urine Cocaine Screen Neg (NEG) Urine Cannabinoids Screen Neg (NEG) Urine Ethyl Alcohol Pos (NEG) White Blood Count 8.9 x10^3/uL (4.0-11.0) 13.0 x10^3/uL (4.0-11.0) Red Blood Count 4.48 x10^6/uL (4.30-5.70) 4.56 x10^6/uL (4.30-5.70) Hemoglobin 15.4 g/dL (13.0-17.5) 15.1 g/dL (13.0-17.5) Hematocrit 43.3 % (39.0-53.0) 44.5 % (39.0-53.0) Mean Corpuscular Volume 97 fL (79-100) 98 fL (79-100) Mean Corpuscular Hemoglobin 34 pg (25-35) 33 pg (25-35) Mean Corpuscular Hemoglobin Concent 36 g/dL (31-37) 34 g/dL (31-37) Red Cell Distribution Width 12.9 % (11.5-14.5) 12.9 % (11.5-14.5) Platelet Count 131 x10^3/uL (140-400) 107 x10^3/uL (140-400) Neutrophils (%) (Auto) 75 % (31-73) 80 % (31-73) Lymphocytes (%) (Auto) 18 % (24-48) 13 % (24-48) Monocytes (%) (Auto) 6 % (0-9) 6 % (0-9) Eosinophils (%) (Auto) 0 % (0-3) 0 % (0-3) Basophils (%) (Auto) 1 % (0-3) 0 % (0-3) Neutrophils # (Auto) 6.7 x10^3/uL (1.8-7.7) 10.4 x10^3/uL (1.8-7.7) Lymphocytes # (Auto) 1.6 x10^3/uL (1.0-4.8) 1.7 x10^3/uL (1.0-4.8) Monocytes # (Auto) 0.5 x10^3/uL (0.0-1.1) 0.8 x10^3/uL (0.0-1.1) Eosinophils # (Auto) 0.0 x10^3/uL (0.0-0.7) 0.0 x10^3/uL (0.0-0.7) Basophils # (Auto) 0.1 x10^3/uL (0.0-0.2) 0.1 x10^3/uL (0.0-0.2) Sodium Level 136 mmol/L (136-145) 139 mmol/L (136-145) Potassium Level 4.2 mmol/L (3.5-5.1) 3.8 mmol/L (3.5-5.1) Chloride Level 101 mmol/L (98-107) 103 mmol/L (98-107) Carbon Dioxide Level 19 mmol/L (21-32) 25 mmol/L (21-32) Anion Gap 16 (6-14) 11 (6-14) Blood Urea Nitrogen 14 mg/dL (8-26) 10 mg/dL (8-26) Creatinine 0.9 mg/dL (0.7-1.3) 1.0 mg/dL (0.7-1.3) Estimated GFR (Cockcroft-Gault) 93.0 82.3 BUN/Creatinine Ratio 16 (6-20) 10 (6-20) Glucose Level 174 mg/dL (70-99) 104 mg/dL (70-99) Calcium Level 8.0 mg/dL (8.5-10.1) 8.6 mg/dL (8.5-10.1) Magnesium Level 1.6 mg/dL (1.8-2.4) Total Bilirubin 0.6 mg/dL (0.2-1.0) 1.6 mg/dL (0.2-1.0) Aspartate Amino Transf (AST/SGOT) 220 U/L (15-37) 137 U/L (15-37) Alanine Aminotransferase (ALT/SGPT) 54 U/L (16-63) 70 U/L (16-63) Alkaline Phosphatase 76 U/L (46-116) 78 U/L (46-116) Total Protein 7.2 g/dL (6.4-8.2) 7.3 g/dL (6.4-8.2) Albumin 3.2 g/dL (3.4-5.0) 3.3 g/dL (3.4-5.0) Albumin/Globulin Ratio 0.8 (1.0-1.7) 0.8 (1.0-1.7) Lipase 577 U/L (73-393) 401 U/L (73-393) Ethyl Alcohol Level 103 mg/dL (0-10) Medications Current Medications Multivitamins 10 ml/Thiamine HCl 100 mg/Folic Acid 1 mg/Sodium Chloride 1,011.2 ml @ 1,000.088 mls/hr 1X ONCE IV Last administered on 08/15/19at 15:49; Start 08/15/19 at 16:00; Stop 08/15/19 at 17:00; Status DC Multi-Ingredient Mouthwash/Gargle (Gi Cocktail) 20 ml 1X ONCE SWSW Last administered on 08/15/19 15:32; Start 08/15/19 at 16:00; Stop 08/15/19 at 16:01; Status DC Ondansetron HCl (Zofran) 4 mg 1X ONCE IV Last administered on 08/15/19 15:32; Start 08/15/19 at 16:00; Stop 08/15/19 at 16:01; Status DC Iohexol (Omnipaque 300 Mg/ml) 75 ml 1X ONCE IV Last administered on 08/15/19at 16:49; Start 08/15/19 at 17:00; Stop 08/15/19 at 17:01; Status DC Info (CONTRAST GIVEN -- Rx MONITORING) 1 each PRN DAILY PRN MC SEE COMMENTS; Start 08/15/19 at 17:00; Stop 08/17/19 at 16:59 Ondansetron HCl (Zofran) 4 mg PRN Q8HRS PRN IV NAUSEA/VOMITING; Start 08/15/19 at 17:15; Stop 08/15/19 at 17:19; Status DC Morphine Sulfate (Morphine Sulfate) 4 mg PRN Q2HR PRN IV PAIN Last administered on 08/16/19at 05:55; Start 08/15/19 at 17:15; Stop 08/16/19 at 17:14 Sodium Chloride 1,000 ml @ 125 mls/hr 1X ONCE IV Last administered on 08/15/19at 18:21; Start 08/15/19 at 17:15; Stop 08/16/19 at 01:14; Status DC Ondansetron HCl (Zofran) 4 mg PRN Q6HRS PRN IV NAUSEA/VOMITING; Start 08/15/19 at 17:30 Acetaminophen/ Codeine Phosphate (Tylenol #3) 1 tab PRN Q6HRS PRN PO PAIN; Start 08/15/19 at 17:30 Chlordiazepoxide (Librium) 25 mg PRN Q6HRS PRN PO ANXIETY / AGITATION; Start 08/15/19 at 17:30 Zolpidem Tartrate (Ambien) 5 mg PRN QHS PRN PO INSOMNIA; Start 08/15/19 at 17:30 Nicotine (Nicoderm Cq 21mg) 1 patch PRN DAILY PRN TD SMOKING CESSATION; Start 08/15/19 at 17:30 Multivitamins (Thera M Plus) 1 tab DAILY PO ; Start 08/16/19 at 09:00 Thiamine Mononitrate (Vitamin B-1) 100 mg DAILY PO ; Start 08/16/19 at 09:00 Folic Acid (Folic Acid) 1 mg DAILY PO ; Start 08/16/19 at 09:00 Amlodipine Besylate (Norvasc) 5 mg DAILY PO Last administered on 08/16/19at 07:52; Start 08/16/19 at 09:00 Bupropion HCl (Wellbutrin Sr) 100 mg BID PO Last administered on 08/16/19at 07:51; Start 08/15/19 at 21:00 Clonidine HCl (Catapres) 0.1 mg PRN Q1HR PRN PO HTN; Start 08/15/19 at 17:30 Lorazepam (Ativan) 1 mg PRN TID PRN PO ALCOHOL WITHDRAWAL; Start 08/15/19 at 17:30 Naltrexone HCl (ReVia) 50 mg DAILY PO ; Start 08/16/19 at 09:00 Lorazepam (Ativan Inj) 2 mg 1X ONCE IVP Last administered on 08/15/19at 18:19; Start 08/15/19 at 17:30; Stop 08/15/19 at 17:31; Status DC Lorazepam (Ativan Inj) 2 mg PRN Q4HRS PRN IVP ANXIETY / AGITATION Last administered on 08/16/19at 07:45; Start 08/15/19 at 17:30 Fentanyl Citrate (Fentanyl 2ml Vial) 50 mcg PRN Q2HR PRN IVP PAIN; Start 08/15/19 at 17:30 Fentanyl Citrate (Fentanyl 2ml Vial) 50 mcg 1X ONCE IVP Last administered on 08/15/19at 18:20; Start 08/15/19 at 17:30; Stop 08/15/19 at 17:33; Status DC Sodium Chloride 1,000 ml @ 125 mls/hr Q8H IV Last administered on 08/16/19at 05:55; Start 08/15/19 at 18:00 Pantoprazole Sodium (PROTONIX VIAL for IV PUSH) 40 mg DAILYAC IVP Last administered on 08/16/19at 07:51; Start 08/16/19 at 07:30 Pantoprazole Sodium (PROTONIX VIAL for IV PUSH) 40 mg 1X ONCE IVP Last administered on 08/15/19at 18:20; Start 08/15/19 at 17:45; Stop 08/15/19 at 17:46; Status DC Influenza Virus Vaccine Quadrival (Afluria Quad 2019-20 (3yr Up) Syringe) 0.5 ml ONCE ONCE VAX IM ; Start 08/16/19 at 09:00; Stop 08/16/19 at 09:01; Status DC Info (FLU VACCINE SCREEN per RX) 1 each PRN 1X PRN MC SEE COMMENTS; Start 08/16/19 at 02:15; Status Cancel Active Scripts Active Wellbutrin Sr (Bupropion Hcl) 100 Mg Tablet.er 1 Tab PO BID 30 Days Naltrexone Hcl 50 Mg Tablet 1 Tab PO DAILY Take 30 minutes to 1 hour before dinner Lorazepam 1 Mg Tablet 1 Tab PO PRN TID PRN 2 Days Amlodipine Besylate 5 Mg Tablet 5 Mg PO DAILY 30 Days Catapres (Clonidine Hcl) 0.1 Mg Tablet 0.1 Mg PO PRN Q1HR PRN 14 Days Vitals/I & O Vital Sign - Last 24 Hours 08/15/19 08/15/19 08/15/19 08/15/19 15:10 16:00 17:00 18:00 Temp 98.6 98.6 Pulse 72 70 88 90 Resp 22 20 20 21 B/P (MAP) 165/98 (120) 158/103 (121) 195/123 (147) 165/100 (121) Pulse Ox 100 100 100 99 O2 Delivery Room Air Room Air Room Air Room Air 08/15/19 08/15/19 08/15/19 08/15/19 18:20 19:00 19:30 21:24 Pulse 100 98 Resp 24 19 19 B/P (MAP) 157/92 (113) 170/109 (129) Pulse Ox 100 100 98 98 O2 Delivery Room Air Room Air Room Air Room Air 08/15/19 08/15/19 08/15/19 08/16/19 21:54 23:00 23:59 00:29 Temp 99.5 99.5 Pulse 103 Resp 20 B/P (MAP) 176/105 (128) Pulse Ox 98 97 98 98 O2 Delivery Room Air 08/16/19 08/16/19 08/16/19 08/16/19 01:45 02:08 02:38 03:00 Temp 98.6 98.6 Pulse 96 Resp 18 B/P (MAP) 155/98 (117) Pulse Ox 98 96 96 O2 Delivery Room Air Room Air Room Air Room Air 08/16/19 08/16/19 08/16/19 08/16/19 05:55 07:00 07:00 07:52 Temp 98.8 98.8 Pulse 101 101 Resp 18 B/P (MAP) 149/98 (115) 149/98 Pulse Ox 96 96 O2 Delivery Room Air Room Air Room Air 08/16/19 07:54 O2 Delivery Room Air Intake and Output 08/15/19 08/15/19 08/16/19 15:00 23:00 07:00 Intake Total 0 ml Balance 0 ml PAT NOWAK MD Aug 16, 2019 09:06
--- NOTE | 2019-08-16 09:50 | PDOC2 ---
GI CONSULT Reason For Consult: Pancreatitis HPI: HPI: 43 y/o male who we have seen in the past. To ER last night w/ RUQ/epigastric pain radiating to back associated w/ n/v. Started after drinking alcohol - up to about 12 pack of beer daily w/ some Fireball. Not a great historian this morning - drowsy - asks for pain meds and Ativan though Ativan just administered by nurse. H/o pancreatitis and elevated LFTs w/ similar symptoms in 05/2019. Stopped drinking for a couple weeks after last admission - given Naltrexone then. No reflux/heartburn, dysphagia, diarrhea, constipation, hematemesis, hematochezia, melena, or weight loss. Per last encounter, had EGD, colonoscopy, and SBCE @ [facility] "for bleeding in my stomach caused by alcohol" - denied significant findings. Hepatic steatosis and cholelithiasis (w/ CBD 6.4mm) on US/Doppler from 05/2019. Viral hepatitis panel negative then. PMH: PMH: alcoholism right hand surgery FH: Family History: Cancer (grandfather - colon), DM Social History: Smoke: 1 pack per day ALCOHOL: heavy Drugs: None ROS: Difficult to obtain. Vitals: Vitals: Vital Signs Date Time Temp Pulse Resp B/P (MAP) Pulse Ox O2 Delivery O2 Flow Rate FiO2 08/16/19 07:54 Room Air 08/16/19 07:52 101 149/98 08/16/19 07:00 98.8 18 96 98.8 Labs: Labs: Laboratory Tests Test 08/15/19 13:17 08/15/19 15:28 08/16/19 05:55 Urine Color Yellow Urine Clarity Clear Urine pH 7.0 Urine Specific [place] 1.015 Urine Protein Negative mg/dL (NEG-TRACE) Urine Glucose (UA) Negative mg/dL (NEG) Urine Ketones (Stick) Negative mg/dL (NEG) Urine Blood Negative (NEG) Urine Nitrite Negative (NEG) Urine Bilirubin Negative (NEG) Urine Urobilinogen Dipstick 1.0 mg/dL (0.2 mg/dL) Urine Leukocyte Esterase Negative (NEG) Urine RBC 0 /HPF (0-2) Urine WBC Occ /HPF (0-4) Urine Squamous Epithelial Cells Occ /LPF Urine Bacteria 0 /HPF (0-FEW) Urine Mucus Mod /LPF Urine Opiates Screen Neg (NEG) Urine Methadone Screen Neg (NEG) Urine Barbiturates Neg (NEG) Urine Phencyclidine Screen Neg (NEG) Urine Amphetamine/Methamphetamine Neg (NEG) Urine Benzodiazepines Screen Neg (NEG) Urine Cocaine Screen Neg (NEG) Urine Cannabinoids Screen Neg (NEG) Urine Ethyl Alcohol Pos (NEG) White Blood Count 8.9 x10^3/uL (4.0-11.0) 13.0 x10^3/uL (4.0-11.0) Red Blood Count 4.48 x10^6/uL (4.30-5.70) 4.56 x10^6/uL (4.30-5.70) Hemoglobin 15.4 g/dL (13.0-17.5) 15.1 g/dL (13.0-17.5) Hematocrit 43.3 % (39.0-53.0) 44.5 % (39.0-53.0) Mean Corpuscular Volume 97 fL (79-100) 98 fL (79-100) Mean Corpuscular Hemoglobin 34 pg (25-35) 33 pg (25-35) Mean Corpuscular Hemoglobin Concent 36 g/dL (31-37) 34 g/dL (31-37) Red Cell Distribution Width 12.9 % (11.5-14.5) 12.9 % (11.5-14.5) Platelet Count 131 x10^3/uL (140-400) 107 x10^3/uL (140-400) Neutrophils (%) (Auto) 75 % (31-73) 80 % (31-73) Lymphocytes (%) (Auto) 18 % (24-48) 13 % (24-48) Monocytes (%) (Auto) 6 % (0-9) 6 % (0-9) Eosinophils (%) (Auto) 0 % (0-3) 0 % (0-3) Basophils (%) (Auto) 1 % (0-3) 0 % (0-3) Neutrophils # (Auto) 6.7 x10^3/uL (1.8-7.7) 10.4 x10^3/uL (1.8-7.7) Lymphocytes # (Auto) 1.6 x10^3/uL (1.0-4.8) 1.7 x10^3/uL (1.0-4.8) Monocytes # (Auto) 0.5 x10^3/uL (0.0-1.1) 0.8 x10^3/uL (0.0-1.1) Eosinophils # (Auto) 0.0 x10^3/uL (0.0-0.7) 0.0 x10^3/uL (0.0-0.7) Basophils # (Auto) 0.1 x10^3/uL (0.0-0.2) 0.1 x10^3/uL (0.0-0.2) Sodium Level 136 mmol/L (136-145) 139 mmol/L (136-145) Potassium Level 4.2 mmol/L (3.5-5.1) 3.8 mmol/L (3.5-5.1) Chloride Level 101 mmol/L (98-107) 103 mmol/L (98-107) Carbon Dioxide Level 19 mmol/L (21-32) 25 mmol/L (21-32) Anion Gap 16 (6-14) 11 (6-14) Blood Urea Nitrogen 14 mg/dL (8-26) 10 mg/dL (8-26) Creatinine 0.9 mg/dL (0.7-1.3) 1.0 mg/dL (0.7-1.3) Estimated GFR (Cockcroft-Gault) 93.0 82.3 BUN/Creatinine Ratio 16 (6-20) 10 (6-20) Glucose Level 174 mg/dL (70-99) 104 mg/dL (70-99) Calcium Level 8.0 mg/dL (8.5-10.1) 8.6 mg/dL (8.5-10.1) Magnesium Level 1.6 mg/dL (1.8-2.4) Total Bilirubin 0.6 mg/dL (0.2-1.0) 1.6 mg/dL (0.2-1.0) Aspartate Amino Transf (AST/SGOT) 220 U/L (15-37) 137 U/L (15-37) Alanine Aminotransferase (ALT/SGPT) 54 U/L (16-63) 70 U/L (16-63) Alkaline Phosphatase 76 U/L (46-116) 78 U/L (46-116) Total Protein 7.2 g/dL (6.4-8.2) 7.3 g/dL (6.4-8.2) Albumin 3.2 g/dL (3.4-5.0) 3.3 g/dL (3.4-5.0) Albumin/Globulin Ratio 0.8 (1.0-1.7) 0.8 (1.0-1.7) Lipase 577 U/L (73-393) 401 U/L (73-393) Ethyl Alcohol Level 103 mg/dL (0-10) Allergies: Coded Allergies: No Known Drug Allergies (Unverified , 11/06/17) Medications: Current Medications Medications (Trade) Dose Ordered Sig/Gurpreet Route PRN Reason Start Time Stop Time Status Last Admin Dose Admin Multivitamins 10 ml/Thiamine HCl 100 mg/Folic Acid 1 mg/Sodium Chloride 1,011.2 ml @ 1,000.088 mls/hr 1X ONCE IV 08/15/19 16:00 08/15/19 17:00 DC 08/15/19 15:49 Multi-Ingredient Mouthwash/Gargle (Gi Cocktail) 20 ml 1X ONCE SWSW 08/15/19 16:00 08/15/19 16:01 DC 08/15/19 15:32 Ondansetron HCl (Zofran) 4 mg 1X ONCE IV 08/15/19 16:00 08/15/19 16:01 DC 08/15/19 15:32 Iohexol (Omnipaque 300 Mg/ml) 75 ml 1X ONCE IV 08/15/19 17:00 08/15/19 17:01 DC 08/15/19 16:49 Morphine Sulfate (Morphine Sulfate) 4 mg PRN Q2HR PRN IV PAIN 08/15/19 17:15 08/16/19 17:14 08/16/19 05:55 Sodium Chloride 1,000 ml @ 125 mls/hr 1X ONCE IV 08/15/19 17:15 08/16/19 01:14 DC 08/15/19 18:21 Amlodipine Besylate (Norvasc) 5 mg DAILY PO 08/16/19 09:00 08/16/19 07:52 Bupropion HCl (Wellbutrin Sr) 100 mg BID PO 08/15/19 21:00 08/16/19 07:51 Lorazepam (Ativan Inj) 2 mg 1X ONCE IVP 08/15/19 17:30 08/15/19 17:31 DC 08/15/19 18:19 Lorazepam (Ativan Inj) 2 mg PRN Q4HRS PRN IVP ANXIETY / AGITATION 08/15/19 17:30 08/16/19 07:45 Fentanyl Citrate (Fentanyl 2ml Vial) 50 mcg 1X ONCE IVP 08/15/19 17:30 08/15/19 17:33 DC 08/15/19 18:20 Sodium Chloride 1,000 ml @ 125 mls/hr Q8H IV 08/15/19 18:00 08/16/19 05:55 Pantoprazole Sodium (PROTONIX VIAL for IV PUSH) 40 mg DAILYAC IVP 08/16/19 07:30 08/16/19 07:51 Pantoprazole Sodium (PROTONIX VIAL for IV PUSH) 40 mg 1X ONCE IVP 08/15/19 17:45 08/15/19 17:46 DC 08/15/19 18:20 Imaging: Imaging: CT A/P w/ IV contrast FINDINGS: Heart size is normal. No pericardial effusion. Visualized lung bases are clear. No pleural effusion. Mild hepatic steatosis. Otherwise, liver, spleen, and adrenals are unremarkable. Gallstone noted within the gallbladder which is otherwise unremarkable. Mild inflammatory changes surrounding the pancreatic head and duodenum. No peripancreatic fluid collection or ductal dilatation. Kidneys a straight symmetric enhancement. No perinephric inflammation or hydronephrosis. No renal or ureteral calculi are identified. Bladder is distended and appears thin-walled. Prostate is not enlarged. Large and small bowel are unremarkable. No obstruction. No free intra-abdominal air or fluid. Abdominal aorta has a normal course and caliber. Abdominal vasculature is patent. No enlarged abdominal lymph nodes are identified. No suspicious osseous lesions or acute fractures. IMPRESSION: 1. Inflammatory changes surrounding the pancreatic head, favored represent pancreatitis. No fluid collection or evidence of necrosis. 2. Inflammatory changes also involve the duodenum, likely secondary to proximity. However, superimposed enteritis is also possible. 3. Hepatic steatosis. PE: GEN: NAD HEENT: Atraumatic, PERRL LUNGS: CTAB HEART: mildly tachycardic ABD: quiet, soft, RUQ/epigastric discomfort EXTREMITY: No edema SKIN: No rashes, no jaundice NEURO/PSYCH: A & O 3 - drowsy A/P: A/P: Alcohol intoxication/abuse - ethyl alcohol 103 Upper abd pain, n/v Leukocytosis, thrombocytopenia, elevated LFTs Pancreatitis - CT notes inflammatory changes surrounding the pancreatic head and involving duodenum (likely 2/2 proximity) Hepatic steatosis, cholelithiasis CRC screen - reports normal colonoscopy in the past @ [facility] -- Similar to previous encounter. Withdrawal precautions/pain control per primary. Supportive care per GI - keep sot sips of water for now. Follow LFTs. RANCHO GONZALEZ Aug 16, 2019 09:49
[2019-08-16 11:00] VITALS: BP 155/93
--- NOTE | 2019-08-16 12:16 | NUR ---
SS following for discharge planning. SS reviewed pt chart. Pt is self pay pt. HCFS following for self pay status. Pt is from home and is currently on room air. SS will continue to follow for discharge planning.
[2019-08-16] MEDS ORDERED: MAGNESIUM SULFATE 2GM 50 ML IV ONE (13:30)
[2019-08-16 15:00] VITALS: BP 149/97
[2019-08-16 19:00] VITALS: BP 175/103
[2019-08-16] MEDS: fentaNYL PF VIAL 100 MCG/2 ML VIAL IVP PRN ×2 (20:02→23:39)
[2019-08-16] MEDS: ZOLPIDEM 5 MG TABLET. PO PRN (21:41)
[2019-08-16 23:00] VITALS: BP 170/111
[2019-08-17] MEDS: cloNIDine HCL 0.1 MG TABLET PO PRN ×2 (00:15→11:34)
[2019-08-17] MEDS: ACETAMINOPHEN/CODEINE 300/30MG TABLET. PO PRN ×2 (00:15→11:36)
[2019-08-17] MEDS ORDERED: ACETAMINOPHEN 325 MG TABLET. PO PRN (02:45)
[2019-08-17 03:00] VITALS: BP 126/84
[2019-08-17] MEDS: fentaNYL PF VIAL 100 MCG/2 ML VIAL IVP PRN ×5 (03:02→23:11)
[2019-08-17 04:51] LABS: BASO % 0 % (0-3); EOS # 0.1 x10^3/uL (0.0-0.7); EOS % 1 % (0-3); HEMATOCRIT 40.5 % (39.0-53.0); LYMPH # 1.2 x10^3/uL (1.0-4.8); LYMPH % 11 % (24-48); MEAN CORPUSCULAR HEMOGLOBIN 34 pg (25-35); MEAN CORPUSCULAR HGB CONC 35 g/dL (31-37); MEAN CORPUSCULAR VOLUME 98 fL (79-100); MONO # 0.6 x10^3/uL (0.0-1.1); MONO % 6 % (0-9); NEUT # 8.5 x10^3/uL (1.8-7.7); NEUT % 82 % (31-73); PLATELET COUNT 87 x10^3/uL (140-400); RED BLOOD COUNT 4.13 x10^6/uL (4.30-5.70); WHITE BLOOD COUNT 10.4 x10^3/uL (4.0-11.0)
[2019-08-17 05:18] LABS: ALBUMIN 2.9 g/dL (3.4-5.0); ALBUMIN/GLOBULIN RATIO 0.7 (1.0-1.7); CALCIUM 8.5 mg/dL (8.5-10.1); CREATININE 0.9 mg/dL (0.7-1.3); POTASSIUM 3.7 mmol/L (3.5-5.1); TOTAL BILIRUBIN 1.4 mg/dL (0.2-1.0); TOTAL PROTEIN 7.1 g/dL (6.4-8.2)
[2019-08-17] MEDS: PANTOPRAZOLE IV PUSH 40 MG VIAL. IVP SCH (05:50)
[2019-08-17 07:00] VITALS: BP 167/109
[2019-08-17] MEDS ORDERED: PANTOPRAZOLE IV PUSH 40 MG VIAL. IVP SCH (07:30)
[2019-08-17] MEDS: FOLIC ACID 1 MG TABLET. PO SCH (08:36)
[2019-08-17] MEDS: buPROPion SR 100 MG TABLET.SA. PO SCH ×2 (08:36→20:49)
[2019-08-17] MEDS: amLODIPine BESYLATE 5 MG TABLET PO SCH (08:36)
[2019-08-17] MEDS: MULTIVITAMIN with MINERAL TABLET. PO SCH (08:36)
[2019-08-17] MEDS: THIAMINE 100 MG TABLET. PO SCH (08:36)
[2019-08-17] MEDS: IV NORMAL SALINE 1000ML BAG 1,000 ML IV SCH ×2 (08:37→15:33)
[2019-08-17 11:00] VITALS: BP 153/103
--- NOTE | 2019-08-17 11:16 | PDOC ---
Subjective: Subjective: Pain better overall but hurting now. Tolerating water, wants jello. Objective: Vital Signs: Vital Signs Date Time Temp Pulse Resp B/P (MAP) Pulse Ox O2 Delivery O2 Flow Rate FiO2 08/17/19 09:31 97 Room Air 08/17/19 08:36 77 167/109 08/17/19 07:00 99.1 14 99.1 Labs: Laboratory Tests Test 08/17/19 03:55 White Blood Count 10.4 x10^3/uL Red Blood Count 4.13 x10^6/uL Hemoglobin 14.0 g/dL Hematocrit 40.5 % Mean Corpuscular Volume 98 fL Mean Corpuscular Hemoglobin 34 pg Mean Corpuscular Hemoglobin Concent 35 g/dL Red Cell Distribution Width 13.0 % Platelet Count 87 x10^3/uL Neutrophils (%) (Auto) 82 % Lymphocytes (%) (Auto) 11 % Monocytes (%) (Auto) 6 % Eosinophils (%) (Auto) 1 % Basophils (%) (Auto) 0 % Neutrophils # (Auto) 8.5 x10^3/uL Lymphocytes # (Auto) 1.2 x10^3/uL Monocytes # (Auto) 0.6 x10^3/uL Eosinophils # (Auto) 0.1 x10^3/uL Basophils # (Auto) 0.0 x10^3/uL Sodium Level 135 mmol/L Potassium Level 3.7 mmol/L Chloride Level 102 mmol/L Carbon Dioxide Level 22 mmol/L Anion Gap 11 Blood Urea Nitrogen 5 mg/dL Creatinine 0.9 mg/dL Estimated GFR (Cockcroft-Gault) 93.0 BUN/Creatinine Ratio 6 Glucose Level 94 mg/dL Calcium Level 8.5 mg/dL Total Bilirubin 1.4 mg/dL Aspartate Amino Transf (AST/SGOT) 59 U/L Alanine Aminotransferase (ALT/SGPT) 46 U/L Alkaline Phosphatase 75 U/L Total Protein 7.1 g/dL Albumin 2.9 g/dL Albumin/Globulin Ratio 0.7 Lipase 152 U/L PE: GEN: NAD - was resting LUNGS: CTAB HEART: RRR ABD: soft, less tender NEURO/PSYCH: A & O 3 A/P: Alcohol intoxication/abuse Upper abd pain/recurrent pancreatitis Leukocytosis, elevated LFTs - better Thrombocytopenia Cholelithiasis, hepatic steatosis HTN - per primary -- Try clears. Stop drinking. RANCHO GONZALEZ Aug 17, 2019 11:15
--- NOTE | 2019-08-17 12:53 | PDOC ---
[employer] PROGRESS NOTE Chief Complaint Chief Complaint Pancreatitis SIRS, non infectious Sinus tachycardia Transaminitis Hepatic steatosis Obesity - BMI 30.1 Depression NOS, addictions/alcohol dependence Mild PCM - albumin 3,2 Accelerated HTN Alcoholism History of Present Illness History of Present Illness 08/17/19 Pt seen and examined at bedside AST: 59, ALT: 46 (down from 137 and 70, respectively) Pt was awake, hopes to eat soon Lipase: 152 (down from 401) DW RN Charts and labs reviewed 08/16/[address] Erickson Asking for pain meds LEss shaky but claims wobbly still on feet Lipase down to 400s from 577on admit CT abd supports acute pancreatitis Vitals/I&O Vitals/I&O: Vital Signs Date Time Temp Pulse Resp B/P (MAP) Pulse Ox O2 Delivery O2 Flow Rate FiO2 08/17/19 12:26 97 Room Air 08/17/19 11:34 77 167/109 08/17/19 07:00 99.1 14 99.1 I & O0 08/16/19 08/16/19 08/17/19 15:00 23:00 07:00 Intake Total 50 ml 50 ml Balance 50 ml 50 ml Physical Exam General: Alert, Oriented X3, Cooperative, No acute distress, Other (shaky, curled up, in epig pain) Heart: Regular rate, Normal S1, Normal S2 Lungs: Clear Abdomen: Normal bowel sounds, Soft, Other (tenderness epig area, no guarding) Extremities: No clubbing, No cyanosis, No edema, Normal pulses, No tenderness/swelling Skin: No rashes, No breakdown, No significant lesion Labs Labs: Laboratory Tests Test 08/17/19 03:55 White Blood Count 10.4 x10^3/uL (4.0-11.0) Red Blood Count 4.13 x10^6/uL (4.30-5.70) Hemoglobin 14.0 g/dL (13.0-17.5) Hematocrit 40.5 % (39.0-53.0) Mean Corpuscular Volume 98 fL (79-100) Mean Corpuscular Hemoglobin 34 pg (25-35) Mean Corpuscular Hemoglobin Concent 35 g/dL (31-37) Red Cell Distribution Width 13.0 % (11.5-14.5) Platelet Count 87 x10^3/uL (140-400) Neutrophils (%) (Auto) 82 % (31-73) Lymphocytes (%) (Auto) 11 % (24-48) Monocytes (%) (Auto) 6 % (0-9) Eosinophils (%) (Auto) 1 % (0-3) Basophils (%) (Auto) 0 % (0-3) Neutrophils # (Auto) 8.5 x10^3/uL (1.8-7.7) Lymphocytes # (Auto) 1.2 x10^3/uL (1.0-4.8) Monocytes # (Auto) 0.6 x10^3/uL (0.0-1.1) Eosinophils # (Auto) 0.1 x10^3/uL (0.0-0.7) Basophils # (Auto) 0.0 x10^3/uL (0.0-0.2) Sodium Level 135 mmol/L (136-145) Potassium Level 3.7 mmol/L (3.5-5.1) Chloride Level 102 mmol/L (98-107) Carbon Dioxide Level 22 mmol/L (21-32) Anion Gap 11 (6-14) Blood Urea Nitrogen 5 mg/dL (8-26) Creatinine 0.9 mg/dL (0.7-1.3) Estimated GFR (Cockcroft-Gault) 93.0 BUN/Creatinine Ratio 6 (6-20) Glucose Level 94 mg/dL (70-99) Calcium Level 8.5 mg/dL (8.5-10.1) Total Bilirubin 1.4 mg/dL (0.2-1.0) Aspartate Amino Transf (AST/SGOT) 59 U/L (15-37) Alanine Aminotransferase (ALT/SGPT) 46 U/L (16-63) Alkaline Phosphatase 75 U/L (46-116) Total Protein 7.1 g/dL (6.4-8.2) Albumin 2.9 g/dL (3.4-5.0) Albumin/Globulin Ratio 0.7 (1.0-1.7) Lipase 152 U/L (73-393) Review of Systems Review of Systems: No nausea, no vomiting No chest pain, no palpitations Assessment and Plan Assessmemt and Plan Problems Medical Problems: (1) Acute pancreatitis Status: Acute (2) Alcoholism Status: Acute Assessment Pancreatitis Alcohol abuse Hepatic steatosis Cholelithiasis Transaminitis Accelerated HTN Obesity Plan CIWA Encourage PO intake per GI Trend LFTs Trend Lipase BP control DVT prophylaxis Home meds Full code Comment Review of Relevant I have reviewed the following items gavi (where applicable) has been applied. Medications: Current Medications Medications (Trade) Dose Ordered Sig/Gurpreet Route PRN Reason Start Time Stop Time Status Last Admin Dose Admin Magnesium Sulfate 50 ml @ 25 mls/hr 1X ONCE IV 08/16/19 13:30 08/16/19 15:29 DC 08/16/19 13:48 Acetaminophen (Tylenol) 650 mg PRN Q6HRS PRN PO MILD PAIN / TEMP 08/17/19 02:45 08/17/19 03:02 MEI LUCERO III DO Aug 17, 2019 12:53
[2019-08-17 15:00] VITALS: BP 153/98
[2019-08-17 19:00] VITALS: BP 155/99
[2019-08-17] MEDS: ZOLPIDEM 5 MG TABLET. PO PRN (20:49)
[2019-08-17 23:00] VITALS: BP 189/116
[2019-08-18] MEDS: fentaNYL PF VIAL 100 MCG/2 ML VIAL IVP PRN (02:48)
[2019-08-18] MEDS: IV NORMAL SALINE 1000ML BAG 1,000 ML IV SCH ×2 (02:48→07:51)
[2019-08-18 03:00] VITALS: BP 144/100
[2019-08-18 07:00] VITALS: BP 154/97
[2019-08-18] MEDS ORDERED: PANTOPRAZOLE 40 MG TABLET.DR. PO SCH (07:30)
[2019-08-18] MEDS: buPROPion SR 100 MG TABLET.SA. PO SCH (07:50)
[2019-08-18] MEDS: ACETAMINOPHEN/CODEINE 300/30MG TABLET. PO PRN (07:50)
[2019-08-18] MEDS: MULTIVITAMIN with MINERAL TABLET. PO SCH (07:50)
[2019-08-18] MEDS: THIAMINE 100 MG TABLET. PO SCH (07:50)
[2019-08-18] MEDS: FOLIC ACID 1 MG TABLET. PO SCH (07:50)
[2019-08-18] MEDS: amLODIPine BESYLATE 5 MG TABLET PO SCH (07:50)
[2019-08-18] MEDS ORDERED: AMLO5TAB10 PO (09:00)
[2019-08-18] MEDS ORDERED: BUPR100T7 PO (09:00)
[2019-08-18] MEDS ORDERED: Nicotine 21MG TD (09:00)
[2019-08-18] MEDS ORDERED: MULT1TAB90 PO (09:00)
[2019-08-18] MEDS ORDERED: THIA100T22 PO (09:00)
[2019-08-18] MEDS ORDERED: LORA-434 PO (09:00)
[2019-08-18] MEDS ORDERED: Folic Acid PO (09:00)
--- NOTE | 2019-08-18 09:04 | PDOC3 ---
Discharge Summary Visit Information Date of Admission: Aug 15, 2019 Date of Discharge: Aug 18, 2019 Admitting Diagnosis Comment: alcoholic pancreatitis Final Diagnosis Problems Medical Problems: (1) Acute pancreatitis Status: Acute (2) Alcoholism Status: Acute Brief Hospital Course Allergies Allergies Coded Allergies Type Severity Reaction Last Updated Verified No Known Drug Allergies 11/06/17 No Vital Signs Vital Signs Date Time Temp Pulse Resp B/P (MAP) Pulse Ox O2 Delivery O2 Flow Rate FiO2 08/18/19 08:45 97 Room Air 08/18/19 07:50 70 154/97 08/18/19 07:00 99.0 18 99.0 Lab Results Laboratory Tests Test 08/17/19 03:55 White Blood Count 10.4 x10^3/uL (4.0-11.0) Red Blood Count 4.13 x10^6/uL (4.30-5.70) Hemoglobin 14.0 g/dL (13.0-17.5) Hematocrit 40.5 % (39.0-53.0) Mean Corpuscular Volume 98 fL (79-100) Mean Corpuscular Hemoglobin 34 pg (25-35) Mean Corpuscular Hemoglobin Concent 35 g/dL (31-37) Red Cell Distribution Width 13.0 % (11.5-14.5) Platelet Count 87 x10^3/uL (140-400) Neutrophils (%) (Auto) 82 % (31-73) Lymphocytes (%) (Auto) 11 % (24-48) Monocytes (%) (Auto) 6 % (0-9) Eosinophils (%) (Auto) 1 % (0-3) Basophils (%) (Auto) 0 % (0-3) Neutrophils # (Auto) 8.5 x10^3/uL (1.8-7.7) Lymphocytes # (Auto) 1.2 x10^3/uL (1.0-4.8) Monocytes # (Auto) 0.6 x10^3/uL (0.0-1.1) Eosinophils # (Auto) 0.1 x10^3/uL (0.0-0.7) Basophils # (Auto) 0.0 x10^3/uL (0.0-0.2) Sodium Level 135 mmol/L (136-145) Potassium Level 3.7 mmol/L (3.5-5.1) Chloride Level 102 mmol/L (98-107) Carbon Dioxide Level 22 mmol/L (21-32) Anion Gap 11 (6-14) Blood Urea Nitrogen 5 mg/dL (8-26) Creatinine 0.9 mg/dL (0.7-1.3) Estimated GFR (Cockcroft-Gault) 93.0 BUN/Creatinine Ratio 6 (6-20) Glucose Level 94 mg/dL (70-99) Calcium Level 8.5 mg/dL (8.5-10.1) Total Bilirubin 1.4 mg/dL (0.2-1.0) Aspartate Amino Transf (AST/SGOT) 59 U/L (15-37) Alanine Aminotransferase (ALT/SGPT) 46 U/L (16-63) Alkaline Phosphatase 75 U/L (46-116) Total Protein 7.1 g/dL (6.4-8.2) Albumin 2.9 g/dL (3.4-5.0) Albumin/Globulin Ratio 0.7 (1.0-1.7) Lipase 152 U/L (73-393) Brief Hospital Course Mr. Dyer is a 43 old [sex] who presented with [ ]alcoholic pancreatitis with lipase [address] showing pancreatic inflammation, HE stayed about 2-3 MN, lipase on dc normal. HEavy educn counselling done about the mcc effects of recurrent pancreatitis, HE also smokes, HE requested some ativan,. I also wrote for his home norvasc, wellbutrin and other meds, Awaiting PTOT eval make sure gait steady. HE drove himself here, HOme today, advance to GI soft, home if tolerates Pt seen and examined Dw RN Shari Discharge Information Condition at Discharge: Improved, Stable Disposition/Orders: D/C to Home Scheduled Amlodipine Besylate (Amlodipine Besylate) 5 Mg Tablet, 5 MG PO DAILY for HTN for 30 Days, #30 Ref 2 Prescribed by: PAT NOWAK on 08/18/19 0900 Bupropion Hcl (Wellbutrin Sr) 100 Mg Tablet.er, 1 TAB PO BID for Smoking cessation/Depression for 30 Days, #60 Ref 2 Prescribed by: PAT NOWAK on 08/18/19 0900 Lorazepam (Ativan) 1 Mg Tablet, 1 MG PO TID for alcohol anxiety, #60 Prescribed by: PAT NOWAK on 08/18/19 09 Multivits,Ca,Minerals/Iron/Fa (Thera-M Tablet) 1 Each Tablet, 1 TAB PO DAILY for mvi, #60 Prescribed by: PAT NOWAK on 08/18/19899 Naltrexone Hcl (Naltrexone Hcl) 50 Mg Tablet, 1 TAB PO DAILY for Alcohol dependence, #30 Ref 2 Take 30 minutes to 1 hour before dinner Prescribed by: NADER PANDEY MD on 06/03/191013 Last Action: Continued on 08/15/191717 by PAT NOWAK Thiamine Mononitrate (Vitamin B-1) 100 Mg Tablet, 100 MG PO DAILY for mvi, #60 Prescribed by: PAT NOWAK on 08/18/19899 [Folic Acid] 1 MG TABLET, 1 MG PO DAILY for mvi, #60 Prescribed by: PAT NOWAK on 08/18/19899 Scheduled PRN Clonidine Hcl (Catapres) 0.1 Mg Tablet, 0.1 MG PO PRN Q1HR PRN for ALCOHOL WITHDRAWAL for 14 Days, #20 Prescribed by: NADER PANDEY MD on 06/03/191013 Last Action: Continued on 08/15/191717 by PAT NOWAK Lorazepam (Lorazepam) 1 Mg Tablet, 1 TAB PO PRN TID PRN for ALCOHOL WITHDRAWAL for 2 Days, #6 Prescribed by: NADER PANDEY MD on 06/03/191013 Last Action: Continued on 08/15/191717 by PAT NOWAK [Nicotine 21MG] 1 PATCH PATCH, 1 PATCH TD PRN DAILY PRN for SMOKING CESSATION, #14 Prescribed by: PAT NOWAK on 08/18/19899 PAT NOWAK MD Aug 18, 2019 09:04
--- NOTE | 2019-08-18 10:10 | NUR ---
Received order from Dr. Erickson to advance diet to GI soft. 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 Will notify GI physician/[employer].
[2019-08-18 11:00] VITALS: BP 143/89
--- NOTE | 2019-08-18 12:30 | NUR ---
Discharge Note: REGG[facility] [place] Discharge instructions and discharge home medications reviewed with Patient and a copy given. All questions have been answered and understanding verbalized. The following instructions and handouts were given: information about pancreatitis and alcohol cessation. Discontinued lines and drains: IV line in left forearm removed, catheter tip intact. Patient discharged to home with self care, patient ambulated to discharge vehicle parked in ER parking lot, drove himself home.
== END 2019-08-18 12:30 | disposition home or self-care (01) | DRG 439 ==
LOC: ER 14:52 → ED HOLD 17:17 → 4 NORTH 20:15
PROVIDERS: ADMIT Internal Medicine; ATTEND Internal Medicine
DX: K85.20 Alcohol induced acute pancreatitis without necrosis or infection (principal); E44.1 Mild protein-calorie malnutrition; R65.10 Systemic inflammatory response syndrome (SIRS) of non-infectious origin without acute organ dysfunction; D69.6 Thrombocytopenia, unspecified; K86.1 Other chronic pancreatitis; Z68.30 Body mass index [BMI] 30.0-30.9, adult; E66.9 Obesity, unspecified; R00.0 Tachycardia, unspecified; F10.229 Alcohol dependence with intoxication, unspecified; F17.210 Nicotine dependence, cigarettes, uncomplicated; F32.9 Major depressive disorder, single episode, unspecified; F41.9 Anxiety disorder, unspecified; I10 Essential (primary) hypertension; K76.0 Fatty (change of) liver, not elsewhere classified; K80.20 Calculus of gallbladder without cholecystitis without obstruction; Z80.9 Family history of malignant neoplasm, unspecified; Z82.49 Family history of ischemic heart disease and other diseases of the circulatory system; Z83.3 Family history of diabetes mellitus; Y90.9 Presence of alcohol in blood, level not specified
CPT/HCPCS: 36415; 74177; 80053; 80307; 81001; 83690; 83735; 85025; 90471; 90686; 93005; 96361; 96365; 96375; C9113; G0480; J2060; J2270; J2405; J3010; J3475; J7030; Q9967; 99285-25; G0378

== ENCOUNTER 2020-07-14 20:23 | Emergency (ER) | payer SELFPAY ==
[~2020-07-14] VITALS: Ht 177.8 cm; Wt 90.9 kg
[~2020-07-14 20:23] MED LIST changes: +Folic Acid PO; +LORA-434 PO; +MULT1TAB90 PO; +Nicotine 21MG TD; +THIA100T22 PO
--- NOTE | 2020-07-14 21:20 | RAD ---
CT ABDOMEN PELVIS WO CONTRAST History: Reason: abd pain RLQ hx of pancreatitis / Spl. Instructions: / History: Technique: Noncontrast examination of the abdomen and pelvis. Coronal and sagittal reconstructions were performed. Exposure: One or more of the following individualized dose reduction techniques were utilized for this examination: 1. Automated exposure control 2. Adjustment of the mA and/or kV according to patient size 3. Use of iterative reconstruction technique. Comparison: August 15, 2019 Findings: Lower chest: No consolidation or pleural effusion. Right lower lobe calcified pulmonary nodule, likely prior granulomatous disease. Abdomen and pelvis: The liver, spleen, adrenal glands, and pancreas are unremarkable. Cholelithiasis. No gallbladder wall thickening. Normal appearance the kidneys. No hydronephrosis. No renal, ureteral or urinary bladder calculus. Normal appendix. No evidence of bowel obstruction. No pathologic lymphadenopathy. No ascites. Small fat-containing umbilical hernia. Mildly distended urinary bladder. Bones: No pathologic osseous lesions. Impression: 1. No acute abdominal or pelvic pathology. 2. Cholelithiasis. Electronically signed by: Elvis Hannah DO (07/14/2020 9:17 PM) [facility]
[2020-07-14] MEDS ORDERED: MORPHINE SULFATE 10 MG/ML VIAL. IV ONE (21:30)
[2020-07-14] MEDS ORDERED: ONDANSETRON PF 4 MG/2 ML VIAL. IVP ONE (21:30)
[2020-07-14] MEDS ORDERED: MULTIVIT INFUSN,ADULT 4,VIT K 10 ML, THIAMINE INJ 100 MG, FOLIC ACID INJ 1 MG in IV NOR... IV ONE (21:30)
[2020-07-14 21:33] LABS: BASO # 0.2 x10^3/uL (0.0-0.2); BASO % 3 % (0-3); EOS % 0 % (0-3); HEMATOCRIT 41.7 % (39.0-53.0); HEMOGLOBIN 14.7 g/dL (13.0-17.5); LYMPH # 1.7 x10^3/uL (1.0-4.8); LYMPH % 28 % (24-48); MEAN CORPUSCULAR HEMOGLOBIN 34 pg (25-35); MEAN CORPUSCULAR HGB CONC 35 g/dL (31-37); MEAN CORPUSCULAR VOLUME 96 fL (79-100); MONO # 0.7 x10^3/uL (0.0-1.1); MONO % 12 % (0-9); NEUT # 3.5 x10^3/uL (1.8-7.7); NEUT % 57 % (31-73); PLATELET COUNT 142 x10^3/uL (140-400); RED BLOOD COUNT 4.36 x10^6/uL (4.30-5.70); RED CELL DISTRIBUTION WIDTH 11.9 % (11.5-14.5); WHITE BLOOD COUNT 6.1 x10^3/uL (4.0-11.0)
[2020-07-14 21:36] LABS: BILIRUBIN,URINE NEGATIVE (NEG); CLARITY,URINE CLEAR; COLOR,URINE YELLOW; NITRITE,URINE NEGATIVE (NEG); PROTEIN,URINE 100 mg/dL (NEG-TRACE)
[2020-07-14 21:41] LABS: AMPHETAMINE/METHAMPHETAMINE NEG (NEG); BARBITURATES NEG (NEG); BENZODIAZEPINES NEG (NEG); CANNABINOIDS NEG (NEG); COCAINE NEG (NEG); METHADONE NEG (NEG); OPIATES NEG (NEG); PHENCYCLIDINE NEG (NEG)
[2020-07-14 21:42] LABS: CALCIUM 7.8 mg/dL (8.5-10.1); CREATININE 1.1 mg/dL (0.7-1.3); GFR 73.4
[2020-07-14 21:42] LABS: BACTERIA,URINE 0 /HPF (0-FEW); RBC,URINE RARE /HPF (0-2); WBC,URINE RARE /HPF (0-4)
[2020-07-14 21:47] LABS: ALBUMIN 3.3 g/dL (3.4-5.0); ALBUMIN/GLOBULIN RATIO 0.8 (1.0-1.7); MAGNESIUM 1.8 mg/dL (1.8-2.4); TOTAL BILIRUBIN 0.6 mg/dL (0.2-1.0); TOTAL PROTEIN 7.6 g/dL (6.4-8.2)
[2020-07-14] MEDS ORDERED: LORazepam 0.5 MG TABLET PO ONE (22:30)
[2020-07-14 22:38] VITALS: BP 140/90
--- NOTE | 2020-07-14 22:46 | PHYS DOC ---
Past Medical History Past Medical History: No Pertinent History Past Surgical History: Other Additional Past Surgical Histo: RIGHT HAND Smoking Status: Current Every Day Smoker Alcohol Use: Heavy Drug Use: None General Adult EDM: Chief Complaint: ABDOMINAL PAIN HPI: HPI: Patient is a 44 year old male with history of alcoholism who presents to the ED today complaining of 9 out of 10 right lower quadrant abdominal pain intermittently for 1 week. Patient is also complaining of nausea and vomiting for 2 days. Denies any fever. He states he drank several hard liquor drinks today. He is not sure if he is open to going to rehab today Review of Systems: Review of Systems: Constitutional: Denies fever or chills. [] Eyes: Denies change in visual acuity. [] HENT: Denies nasal congestion or sore throat. [] Respiratory: Denies cough or shortness of breath. [] Cardiovascular: Denies chest pain or edema. [] GI: Reports alcoholism, right lower quadrant abdominal pain with nausea and vomiting bloody stools or diarrhea. [] : Denies dysuria. [] Musculoskeletal: Denies back pain or joint pain. [] Integument: Denies rash. [] Neurologic: Denies headache, focal weakness or sensory changes. [] Endocrine: Denies polyuria or polydipsia. [] Lymphatic: Denies swollen glands. [] Psychiatric: Denies depression or anxiety. [] Heart Score: Risk Factors: Risk Factors: DM, Current or recent (<one month) smoker, HTN, HLP, family history of CAD, obesity. Risk Scores: Score 0 - 3: 2.5% MACE over next 6 weeks - Discharge Home Score 4 - 6: 20.3% MACE over next 6 weeks - Admit for Clinical Observation Score 7 - 10: 72.7% MACE over next 6 weeks - Early Invasive Strategies Current Medications: Current Medications Medications (Trade) Dose Ordered Sig/Gurpreet Start Time Stop Time Status Last Admin Dose Admin Lorazepam (Ativan) 0.5 mg 1X ONCE 07/14/20 22:30 07/14/20 22:31 DC Morphine Sulfate (Morphine Sulfate) 5 mg 1X ONCE 07/14/20 21:30 07/14/20 21:31 DC 07/14/20 21:32 5 MG Multivitamins 10 ml/Thiamine HCl 100 mg/Folic Acid 1 mg/Sodium Chloride 1,011.2 ml @ 1,000.088 mls/hr 1X ONCE 07/14/20 21:30 07/14/20 22:30 DC 07/14/20 21:31 1,000.088 MLS/HR Ondansetron HCl (Zofran) 4 mg 1X ONCE 07/14/20 21:30 07/14/20 21:31 DC 07/14/20 21:32 4 MG Allergies: Allergies: Allergies Coded Allergies Type Severity Reaction Last Updated Verified No Known Drug Allergies 11/06/17 No Physical Exam: PE: Constitutional: Well developed, well nourished, no acute distress, non-toxic appearance. [] HENT: Normocephalic, atraumatic, bilateral external ears normal, oropharynx moist, no oral exudates, nose normal. [] Eyes: PERRLA, EOMI, conjunctiva normal, no discharge. [] Neck: Normal range of motion, no tenderness, supple, no stridor. [] Cardiovascular:Heart rate regular rhythm, no murmur [] Lungs & Thorax: Bilateral breath sounds clear to auscultation [] Abdomen: Bowel sounds normal, soft, no tenderness in the right upper quadrant but slight tenderness on the right lower quadrant with negative Avelar sign, negative psoas sign, negative obturator sign, negative Rovsing sign, no guarding, no rebound pain or tenderness, no masses, no pulsatile masses. [] Skin: Warm, dry, no erythema, no rash. [] Back: No tenderness, no CVA tenderness. [] Extremities: No tenderness, no cyanosis, no clubbing, ROM intact, no edema. [] Neurologic: Alert and oriented X 3, normal motor function, normal sensory function, no focal deficits noted. [] Psychologic: Affect normal, judgement normal, mood normal. [] Current Patient Data: Labs: Laboratory Tests Test 07/14/20 21:05 07/14/20 21:20 Urine Collection Type Void Urine Color Yellow Urine Clarity Clear Urine pH 7.0 (<5.0-8.0) Urine Specific [place] 1.010 (1.000-1.030) Urine Protein 100 mg/dL (NEG-TRACE) Urine Glucose (UA) Negative mg/dL (NEG) Urine Ketones (Stick) Negative mg/dL (NEG) Urine Blood Negative (NEG) Urine Nitrite Negative (NEG) Urine Bilirubin Negative (NEG) Urine Urobilinogen Dipstick 1.0 mg/dL (0.2 mg/dL) Urine Leukocyte Esterase Negative (NEG) Urine RBC Rare /HPF (0-2) Urine WBC Rare /HPF (0-4) Urine Bacteria 0 /HPF (0-FEW) Urine Opiates Screen Neg (NEG) Urine Methadone Screen Neg (NEG) Urine Barbiturates Neg (NEG) Urine Phencyclidine Screen Neg (NEG) Urine Amphetamine/Methamphetamine Neg (NEG) Urine Benzodiazepines Screen Neg (NEG) Urine Cocaine Screen Neg (NEG) Urine Cannabinoids Screen Neg (NEG) Urine Ethyl Alcohol Pos (NEG) White Blood Count 6.1 x10^3/uL (4.0-11.0) Red Blood Count 4.36 x10^6/uL (4.30-5.70) Hemoglobin 14.7 g/dL (13.0-17.5) Hematocrit 41.7 % (39.0-53.0) Mean Corpuscular Volume 96 fL (79-100) Mean Corpuscular Hemoglobin 34 pg (25-35) Mean Corpuscular Hemoglobin Concent 35 g/dL (31-37) Red Cell Distribution Width 11.9 % (11.5-14.5) Platelet Count 142 x10^3/uL (140-400) Neutrophils (%) (Auto) 57 % (31-73) Lymphocytes (%) (Auto) 28 % (24-48) Monocytes (%) (Auto) 12 % (0-9) H Eosinophils (%) (Auto) 0 % (0-3) Basophils (%) (Auto) 3 % (0-3) Neutrophils # (Auto) 3.5 x10^3/uL (1.8-7.7) Lymphocytes # (Auto) 1.7 x10^3/uL (1.0-4.8) Monocytes # (Auto) 0.7 x10^3/uL (0.0-1.1) Eosinophils # (Auto) 0.0 x10^3/uL (0.0-0.7) Basophils # (Auto) 0.2 x10^3/uL (0.0-0.2) Sodium Level 137 mmol/L (136-145) Potassium Level 4.0 mmol/L (3.5-5.1) Chloride Level 99 mmol/L (98-107) Carbon Dioxide Level 26 mmol/L (21-32) Anion Gap 12 (6-14) Blood Urea Nitrogen 8 mg/dL (8-26) Creatinine 1.1 mg/dL (0.7-1.3) Estimated GFR (Cockcroft-Gault) 73.4 BUN/Creatinine Ratio 7 (6-20) Glucose Level 118 mg/dL (70-99) H Calcium Level 7.8 mg/dL (8.5-10.1) L Magnesium Level 1.8 mg/dL (1.8-2.4) Total Bilirubin 0.6 mg/dL (0.2-1.0) Aspartate Amino Transferase (AST) 150 U/L (15-37) H Alanine Aminotransferase (ALT) 75 U/L (16-63) H Alkaline Phosphatase 84 U/L (46-116) Total Protein 7.6 g/dL (6.4-8.2) Albumin 3.3 g/dL (3.4-5.0) L Albumin/Globulin Ratio 0.8 (1.0-1.7) L Lipase 92 U/L (73-393) Ethyl Alcohol Level 274 mg/dL (0-10) H Laboratory Tests 07/14/20 21:20 Laboratory Tests 07/14/20 21:20 Vital Signs: Vital Signs Date Time Temp Pulse Resp B/P (MAP) Pulse Ox O2 Delivery O2 Flow Rate FiO2 07/14/20 21:32 22 98 07/14/20 20:32 99.7 113 152/91 (111) Room Air 99.7 EKG: EKG: [] Radiology/Procedures: Radiology/Procedures: []PROCEDURE: CT ABDOMEN PELVIS WO CONTRAST CT ABDOMEN PELVIS WO CONTRAST History: Reason: abd pain RLQ hx of pancreatitis / Spl. Instructions: / History: Technique: Noncontrast examination of the abdomen and pelvis. Coronal and sagittal reconstructions were performed. Exposure: One or more of the following individualized dose reduction techniques were utilized for this examination: 1. Automated exposure control 2. Adjustment of the mA and/or kV according to patient size 3. Use of iterative reconstruction technique. Comparison: August 15, 2019 Findings: Lower chest: No consolidation or pleural effusion. Right lower lobe calcified pulmonary nodule, likely prior granulomatous disease. Abdomen and pelvis: The liver, spleen, adrenal glands, and pancreas are unremarkable. Cholelithiasis. No gallbladder wall thickening. Normal appearance the kidneys. No hydronephrosis. No renal, ureteral or urinary bladder calculus. Normal appendix. No evidence of bowel obstruction. No pathologic lymphadenopathy. No ascites. Small fat-containing umbilical hernia. Mildly distended urinary bladder. Bones: No pathologic osseous lesions. Impression: 1. No acute abdominal or pelvic pathology. 2. Cholelithiasis. Electronically signed by: Elvis Hannah DO (07/14/2020 9:17 PM) [facility] DICTATED and SIGNED BY: ELVIS HANNAH DO DATE: 07/14/202116 Course & Med Decision Making: Course & Med Decision Making Pertinent Labs and Imaging studies reviewed. (See chart for details) This is a 44-year-old male patient with history of alcoholism presenting today complaining of right lower quadrant abdominal pain as well as nausea vomiting. CBC with a normal WBC, CMP with AST of 150, ALT of 75, alcohol level 274. Lipase is normal. CT of the abdomen and pelvic was negative for any acute findings. Normal appendix, noted for cholelithiasis. Patient was discharged to home. Provided instructions to follow-up with [facility] for alco hol use, provided general surgery for follow-up for cholelithiasis. Theo Disclaimer: Crowdfynd Disclaimer: This electronic medical record was generated, in whole or in part, using a voice recognition dictation system. Departure Departure Impression: Primary Impression: Alcoholism Additional Impression: Cholelithiasis Qualified Codes: K80.80 - Other cholelithiasis without obstruction Disposition: HOME, SELF-CARE Condition: STABLE Referrals: NO PCP (PCP) follow up with [facility] for alcohol use BONNIE WIGGINS MD follow up in 1 week Patient Instructions: Alcohol Intoxication, [id number], Cholelithiasis Additional Instructions: You were evaluated in the emergency room, your CAT scan of the abdomen and pelvic was negative for any acute findings. Consider getting help from [facility] for alcohol use. Follow-up with the provided general surgeon for gallstones/cholelithiasis Justicifation of Admission Dx: Justifications for Admission: Justification of Admission Dx: N/A ABIMAEL CONTRERAS APRN Jul 14, 2020 22:46
== END 2020-07-14 23:13 | disposition home or self-care (01) ==
LOC: ER 20:23
DX: K80.80 Other cholelithiasis without obstruction (principal); F10.10 Alcohol abuse, uncomplicated; R10.31 Right lower quadrant pain; R11.2 Nausea with vomiting, unspecified; R19.7 Diarrhea, unspecified; F17.200 Nicotine dependence, unspecified, uncomplicated; Z98.890 Other specified postprocedural states
CPT/HCPCS: 36415; 74176; 80053; 80307; 81001; 83690; 83735; 85025; 96361; 96374; 96375; 99284; G0480; J2270; J2405; J3411; J3490; J7030

== ENCOUNTER 2021-11-23 04:07 | Emergency (ER) | payer SELFPAY ==
[~2021-11-23] VITALS: Ht 177.8 cm; Wt 95.2 kg
[~2021-11-23 04:07] MED LIST changes: +AMLO-186 PO; -AMLO5TAB10 PO; -MULT1TAB90 PO; +MULT1TAB92 PO
[2021-11-23 04:31] LABS: HEMATOCRIT 40.9 % (39.0-53.0); HEMOGLOBIN 13.9 g/dL (13.0-17.5); RED BLOOD COUNT 4.41 x10^6/uL (4.30-5.70); RED CELL DISTRIBUTION WIDTH 14.4 % (11.5-14.5); WHITE BLOOD COUNT 7.5 x10^3/uL (4.0-11.0)
[2021-11-23 04:44] LABS: CALCIUM 8.1 mg/dL (8.5-10.1); CREATININE 0.6 mg/dL (0.7-1.3)
[2021-11-23 04:49] LABS: ALBUMIN 3.8 g/dL (3.4-5.0); ALBUMIN/GLOBULIN RATIO 0.9 (1.0-1.7); TOTAL BILIRUBIN 0.2 mg/dL (0.2-1.0)
[2021-11-23 04:56] LABS: ACETAMIN < 2 mcg/ml (10-30); ETHANOL 385 mg/dL (0-10)
--- NOTE | 2021-11-23 05:29 | PHYS DOC ---
Past Medical History Past Medical History: No Pertinent History Additional Past Medical Histor: smoker, addictions, pancreatitis (BERNIE RIZO MD) Past Surgical History: No Surgical History Additional Past Surgical Histo: RIGHT HAND (BERNIE RIZO MD) Smoking Status: Current Every Day Smoker Alcohol Use: Heavy Drug Use: None (BERNIE RIZO MD) Adult General Chief Complaint Chief Complaint: COLD EXPOSURE HPI HPI The patient is a 45-year-old male with a history of alcohol abuse.. He presents for evaluation via EMS after being found by police wandering around outside in a snowstorm. Clothes wet and patient shivering, but temperature of core and extremities normal. Patient is alert to self, situation and year on my evaluation and admits to drinking alcohol but does not readily provide much more history. He moves all extremities equally. No signs of any trauma. Blood glucose was appropriate on the way here per EMS. Vital signs are otherwise appropriate here. (BERNIE RIZO MD) Review of Systems Review of Systems A 12 point review of systems was completed and was negative except where noted in HPI above. (BERNIE RIZO MD) Current Medications Current Medications Current Medications Medications (Trade) Dose Ordered Sig/Gurpreet Start Time Stop Time Status Last Admin Dose Admin Chlordiazepoxide (Librium) 50 mg 1X ONCE 11/23/21 15:30 11/23/21 15:32 DC 11/23/21 16:17 50 MG (MAGNOLIA MILES MD) Allergies Allergies Allergies Coded Allergies Type Severity Reaction Last Updated Verified No Known Drug Allergies 11/06/17 No (MAGNOLIA MILES MD) Physical Exam Physical Exam 45-year-old male appearing nontoxic and in no acute distress. Slurs speech and smells of alcohol. Head is normocephalic and atraumatic. Neck is supple and nontender. Oropharynx is moist. Lungs are clear to auscultation at all stations. There is a normal S1 and S2 without rubs or gallops and capillary refill is appropriate, less than 2 seconds globally. Abdomen is soft, nontender and nondistended. Skin is warm and dry without cyanosis, clubbing or edema. Psychiatrically, the patient demonstrates appropriate mood and affect and is alert. Neurologically, patient moves all extremities equally, is alert to self, situation and year and no lateralizing deficits are seen. (BERNIE RIZO MD) Current Patient Data Vital Signs Vital Signs Date Time Temp Pulse Resp B/P (MAP) Pulse Ox O2 Delivery O2 Flow Rate FiO2 11/23/21 16:07 80 120/63 (82) 96 Room Air 11/23/21 10:37 18 11/23/21 04:20 98.1 98.1 (MAGNOLIA MILES MD) Lab Values Laboratory Tests Test 11/23/21 04:20 11/23/21 06:30 11/23/21 14:07 White Blood Count 7.5 x10^3/uL (4.0-11.0) Red Blood Count 4.41 x10^6/uL (4.30-5.70) Hemoglobin 13.9 g/dL (13.0-17.5) Hematocrit 40.9 % (39.0-53.0) Mean Corpuscular Volume 93 fL (79-100) Mean Corpuscular Hemoglobin 32 pg (25-35) Mean Corpuscular Hemoglobin Concent 34 g/dL (31-37) Red Cell Distribution Width 14.4 % (11.5-14.5) Platelet Count 148 x10^3/uL (140-400) Sodium Level 145 mmol/L (136-145) Potassium Level 4.0 mmol/L (3.5-5.1) Chloride Level 108 mmol/L (98-107) H Carbon Dioxide Level 24 mmol/L (21-32) Anion Gap 13 (6-14) Blood Urea Nitrogen 8 mg/dL (8-26) Creatinine 0.6 mg/dL (0.7-1.3) L Estimated GFR (Cockcroft-Gault) 147.0 BUN/Creatinine Ratio 13 (6-20) Glucose Level 102 mg/dL (70-99) H Calcium Level 8.1 mg/dL (8.5-10.1) L Total Bilirubin 0.2 mg/dL (0.2-1.0) Aspartate Amino Transferase (AST) 30 U/L (15-37) Alanine Aminotransferase (ALT) 38 U/L (16-63) Alkaline Phosphatase 94 U/L (46-116) Total Protein 8.0 g/dL (6.4-8.2) Albumin 3.8 g/dL (3.4-5.0) Albumin/Globulin Ratio 0.9 (1.0-1.7) L Salicylates Level 2.0 mg/dL (2.8-20.0) L Salicylate Last Dose Date Salicylate Last Dose Time Acetaminophen Level < 2 mcg/ml (10-30) L Acetaminophen Last Dose Date Acetaminophen Last Dose Time Ethyl Alcohol Level 385 mg/dL (0-10) H Urine Collection Type Unknown Urine Color Yellow Urine Clarity Clear Urine pH 7.0 (<5.0-8.0) Urine Specific [place] 1.010 (1.000-1.030) Urine Protein Negative mg/dL (NEG-TRACE) Urine Glucose (UA) Negative mg/dL (NEG) Urine Ketones (Stick) Negative mg/dL (NEG) Urine Blood Negative (NEG) Urine Nitrite Negative (NEG) Urine Bilirubin Negative (NEG) Urine Urobilinogen Dipstick 0.2 mg/dL (0.2 mg/dL) Urine Leukocyte Esterase Negative (NEG) Urine RBC 0 /HPF (0-2) Urine WBC 0 /HPF (0-4) Urine Bacteria 0 /HPF (0-FEW) Urine Opiates Screen Neg (NEG) Urine Methadone Screen Neg (NEG) Urine Barbiturates Neg (NEG) Urine Phencyclidine Screen Neg (NEG) Urine Amphetamine/Methamphetamine Neg (NEG) Urine Benzodiazepines Screen Neg (NEG) Urine Cocaine Screen Neg (NEG) Urine Cannabinoids Screen Neg (NEG) Urine Ethyl Alcohol Pos (NEG) Influenza Type A Antigen Negative (NEGATIVE) Influenza Type B Antigen Negative (NEGATIVE) SARS-CoV-2 Antigen (Rapid) Negative (NEGATIVE) Laboratory Tests 11/23/21 04:20 Laboratory Tests 11/23/21 04:20 (MAGNOLIA MILES MD) EKG EKG [] (BERNIE RIZO MD) Radiology/Procedures Radiology/Procedures Checking basic and toxicology labs and have provided the patient with a dry gown and blankets. We will allow him to rest and sober and will plan to reassess when he is clinically sober. 0600: Patient complaining of being unable to urinate into his urinal. Bladder scan reveals a large amount of retained urine. When asked if patient has trouble urinating at times he states he does. Plan to straight cath to address retained urine and to reassess when the patient is sober to determine whether any acute urinary obstruction persists. If so, will likely need a Shen at discharge. Transition of care at this time to Dr. Miles. (BERNIE RIZO MD) Course & Med Decision Making Course & Med Decision Making Pertinent Labs and Imaging studies reviewed. (See chart for details) [] (BERNIE RIZO MD) Course & Med Decision Making Said the patient care at shift change, patient stating he is suicidal. Will monitor and reassess when. PAT contacted for evaluation. They evaluated and recommend [facility]. Patient given prescription for Librium and his father will take him by the pharmacy on the way to [facility]. Patient Emergency department stable condition. (MAGNOLIA MILES MD) Dragon Disclaimer Dragon Disclaimer This electronic medical record was generated, in whole or in part, using a voice recognition dictation system. (BERNIE RIZO MD) Departure Departure Impression: Primary Impression: Alcohol intoxication Additional Impression: Verbalizes suicidal thoughts Disposition: [address] [place] [address] Condition: STABLE Referrals: NO PCP (PCP) Patient Instructions: Alcohol Withdrawal Additional Instructions: [facility] and go directly to [facility] Chlordiazepoxide Hcl (CHLORDIAZEPOXIDE HCL) 25 Mg Capsule 25 MG PO UD for 4 Days, #15 CAP Day 1: 50mg q6h Day 2: 25mg q6h Day 3: 25mg q12h Day 4: 25mg at night Prov: MAGNOLIA MILES MD 11/23/21 Problem Qualifiers Primary Impression: Alcohol intoxication Complication of substance-induced condition: uncomplicated Qualified Codes: F10.920 - Alcohol use, unspecified with intoxication, uncomplicated BERNIE RIZO MD Nov 23, 2021 05:29 MAGNOLIA MILES MD Nov 23, 2021 11:30
[2021-11-23 07:07] LABS: BILIRUBIN,URINE NEGATIVE (NEG); CLARITY,URINE CLEAR; COLOR,URINE YELLOW; NITRITE,URINE NEGATIVE (NEG); PROTEIN,URINE NEGATIVE (NEG-TRACE); UROBILINOGEN,URINE 0.2 mg/dL (0.2 mg/dL)
[2021-11-23 07:12] LABS: BARBITURATES NEG (NEG); BENZODIAZEPINES NEG (NEG); CANNABINOIDS NEG (NEG); COCAINE NEG (NEG); METHADONE NEG (NEG); OPIATES NEG (NEG); PHENCYCLIDINE NEG (NEG)
[2021-11-23 07:18] LABS: AMPHETAMINE/METHAMPHETAMINE NEG (NEG)
[2021-11-23 07:23] LABS: BACTERIA,URINE 0 /HPF (0-FEW); RBC,URINE 0 /HPF (0-2); WBC,URINE 0 /HPF (0-4)
[2021-11-23 14:40] LABS: INFLUENZA A PATIENT NEGATIVE (NEGATIVE); INFLUENZA B PATIENT NEGATIVE (NEGATIVE)
[2021-11-23] MEDS ORDERED: chlordiazePOXIDE HCL 25 MG CAPSULE PO ONE (15:30)
[2021-11-23 16:07] VITALS: BP 120/63
[2021-11-23] MEDS ORDERED: CHLO25CA9 PO ×2 (16:56→18:28)
== END 2021-11-23 19:05 ==
LOC: ER 04:07
DX: R45.851 Suicidal ideations (principal); F10.229 Alcohol dependence with intoxication, unspecified; Y90.8 Blood alcohol level of 240 mg/100 ml or more; Z20.822 Contact with and (suspected) exposure to COVID-19; F17.200 Nicotine dependence, unspecified, uncomplicated
CPT/HCPCS: 36415; 80053; 80307; 80329; 81001; 85027; 87428; 99285; G0480